=== PATIENT | female | born 1940 | race Caucasian/White ===

== ENCOUNTER 2016-09-06 08:31 | Inpatient (IN) | payer MEDICARE ==
[~2016-09-06] VITALS: Ht 160 cm; Wt 81.7 kg
[~2016-09-06 08:31] MED LIST: ACET325T38 PO; ASCO-277 PO; ASCO500C14 PO; ASP325T PO; ASPI-266 PO; ASPI-9 PO; ATOR10TA66 PO; BETA5DRO3 OU; Breo Ellipta INH; C250T PO; CALC-656 PO; CALC-758 PO; CALC600T25 PO; CETI10CA9 PO; CYCL1DRO OU; DIPH50VI4 PO; ENAL10TA PO; EPIN0.3P3 IM; FISH OIL 1,2001 EAC1 PO; FLT05NA16 NS; HYDR-756 PO; METH750T3 PO; MONT10TA21 PO; MTP50T PO; MULT-963 PO; POLY1DRO2 OU; PRD20T PO; PRED20TA PO; RT-ALBUINH IH; RT-COMBINH IH; TIOT18CA2 IH; TML25OP25 OU
[2016-09-06] MEDS ORDERED: NS IV 1000 ML 1,000 ML IV ONE (08:39)
[2016-09-06] MEDS ORDERED: RT-ALBUTEROL/IPRATROPIUM 3 ML (DUONEB) VIAL ONE (08:46)
[2016-09-06] MEDS ORDERED: RT-ALBUTEROL SULF 2.5 MG/3 ML PRE-MIX VIAL ONE ×2 (08:54→16:13)
[2016-09-06] MEDS ORDERED: ACETAMINOPHEN 500 MG TAB (TYLENOL) PO STA (08:56)
[2016-09-06] MEDS ORDERED: RT-ALBUTEROL SULF 2.5 MG/3 ML PRE-MIX VIAL INH STA ×2 (08:56→09:29)
--- NOTE | 2016-09-06 08:56 | ED General ---
General Chief Complaint: Respiratory Problems Stated Complaint: SOA Source of Information: Patient Exam Limitations: No Limitations History of Present Illness Time Seen by Provider: 08:32 Initial Comments Here with report of shortness of air that has been going on for the last week and feeling feverish today. She is currently on steroids. She states this feels like when she had pneumonia the last time a few years ago and required 10 days of hospitalization. She notes that she's had to increase her normal oxygen to keep her sats up. She states that she felt like she was confused and overall not feeling well. Denies nausea or vomiting. Timing/Duration: 1 Week, Getting Worse Severity: Moderate Associated Systoms: No Chest Pain, Cough, Fever/Chills, No Headaches, No Nausea /Vomiting, Shortness of Air, Weakness Allergies and Home Medications Allergies Coded Allergies: No Known Drug Allergies (Unverified , 05/20/13) Home Medications Albuterol Sulfate 1 Puff Puff, 2 PUFF IH QID PRN for SHORTNESS OF BREATH, ( Reported) 15 MINUTES PRIOR TO EXERCISE Ascorbic Acid 500 Mg Tablet, 500 MG PO BID, (Reported) Aspirin 81 Mg Tablet.dr, 81 MG PO DAILY, (Reported) Atorvastatin Calcium 10 Mg Tablet, 10 MG PO HS, (Reported) Betaxolol Hcl 5 Ml Drops, 1 DROP OU BID, (Reported) Calcium Carbonate/Vitamin D3 1 Each Tablet, 1 TAB PO BID, (Reported) Cetirizine HCl 10 Mg Capsule, 10 MG PO DAILY, (Reported) Cyclobenzaprine HCl 10 Mg Tablet, 5 MG PO Q8H PRN for MUSCLE SPASMS, (Reported) Epinephrine 0.3 Mg/0.3 Ml Pen.injctr, 0.3 MG IM PRN PRN for ALLERGIC REACTION, ( Reported) Fluticasone Propionate 16 Gm [place], 2 SPRAYS NS DAILY, (Reported) Fluticasone/Vilanterol 1 Each Blst.w.dev, 1 PUFF IH DAILY, (Reported) Metoprolol Tartrate 50 Mg Tablet, 50 MG PO BID, (Reported) Montelukast Sodium 10 Mg Tablet, 10 MG PO HS, (Reported) Multivitamin 1 Each Tablet, 1 TAB PO DAILY, (Reported) [place]-3 Fatty Acids/Fish Oil 1 Each Capsule, 1 TAB PO BID, (Reported) Polyvinyl Alcohol/Povidone 50 Ea [place], 1 DROP OU Q12H PRN for DRY EYES, ( Reported) Tiotropium [place] 4 Gm Mist.inhal, 2 PUFF INH DAILY, (Reported) Constitutional: see HPI, chills, fever, weakness EENTM: no symptoms reported Respiratory: see HPI, cough, short of breath, wheezing Cardiovascular: no symptoms reported Gastrointestinal: No diarrhea, No nausea, No vomiting Genitourinary: no symptoms reported Musculoskeletal: no symptoms reported All Other Systems Reviewed Negative Unless Noted: Yes Past Eqyeuix-Pmxsxc-Bcamrx Hx Patient Social History Alcohol Use: Denies Use Recreational Drug Use: No Smoking Status: Former Smoker Former Smoker/When Quit: Feb 10, 2011 Immunizations Up To Date Tetanus Booster (TDap): More than 5yrs PED Vaccines UTD: No Date of Pneumonia Vaccine: Jul 21, 2013 Date of Influenza Vaccine: Feb 20, 2015 Seasonal Allergies Seasonal Allergies: Yes Surgeries HX Surgeries: Yes (DENTAL, THUMB SURGERY) Surgeries: Hysterectomy Respiratory Hx Respiratory Disorders: Yes (COPD, WEARS HOME O2 @ 3L ) Respiratory Disorders: COPD Cardiovascular Hx Cardiac Disorders: Yes Neurological Hx Neurological Disorders: No Reproductive System Hx Reproductive Disorders: No Sexually Transmitted Disease: No HIV/AIDS: No Genitourinary Hx Genitourinary Disorders: No Gastrointestinal Hx Gastrointestinal Disorders: No Gastrointestinal Disorders: Polyps Musculoskeletal Hx Musculoskeletal Disorders: Yes (LUMBAR STENOSIS) Musculoskeletal Disorders: Arthritis, Chronic Back Pain Endocrine Hx Endocrine Disorders: No HEENT HX ENT Disorders: Yes (LASER SURGERY LENS REPLACMENT X2, GLASSES, DENTURES ) Loss of Vision: Bilateral Hearing Impairment: Denies Cancer Hx Cancer: No Cancer: Uterine Psychosocial Hx Psychiatric Problems: No Integumentary HX Skin/Integumentary Disorder: No Blood Transfusions Hx Blood Disorders: No Adverse Reaction to a Blood Tr: No Reviewed Nursing Assessment Reviewed/Agree w Nursing PMH: Yes Family Medical History Family Medial History: Cancer 09 SISTER, Onset:25's - 30 (UTERINE) Family history: Hypertension 03 FATHER 03 MOTHER 09 SISTER Myocardial infarction 03 FATHER, Onset:60 years & older 03 MOTHER, Onset:60 years & older Stroke 03 MOTHER (MANY STROKES FOR AGE 30-60) Physical Exam-Suspected Sepsis Physical Exam Vital Signs Vital Sign - Last 12Hours 09/06/16 09/06/16 08:32 08:54 Temp 103.1 Pulse 116 Resp 22 B/P (MAP) 197/100 Pulse Ox 89 O2 Delivery Nasal Cannula O2 Flow Rate 6.00 Capillary Refill : General Appearance: WD/WN, Mild Distress (respiratory) HEENT: PERRL/EOMI, Pharynx Normal Neck: Non Tender, Supple Respiratory: Crackles (bilateral bases), Decreased Breath Sounds, Respiratory Distress Cardiovascular: No Edema, No Murmur, Tachycardia Gastrointestinal: Non Tender, Soft Back: Normal Inspection, No CVA Tenderness, No Vertebral Tenderness Neurologic/Psychiatric: Alert, Oriented x3, No Motor/Sensory Deficits Skin: normal color, warm/dry Focused Exam Lactic Acid Level Laboratory Tests Test 09/06/16 08:45 Lactic Acid Level 1.56 MMOL/L (0.50-2.00) Progress/Results/Core Measures Suspected Sepsis SIRS Temperature: Pulse: Respiratory Rate: Laboratory Tests 09/06/16 08:45: White Blood Count 18.1H Blood Pressure / Mean: Laboratory Tests 09/06/16 08:45: Creatinine 1.12, INR Comment 1.1, Platelet Count 239, Total Bilirubin 0.7 Results/Orders Lab Results Laboratory Tests Test 09/06/16 08:45 Range/Units White Blood Count 18.1 H 4.3-11.0 10^3/uL Red Blood Count 4.62 4.35-5.85 10^6/uL Hemoglobin 14.0 11.5-16.0 G/DL Hematocrit 43 35-52 % Mean Corpuscular Volume 93 80-99 FL Mean Corpuscular Hemoglobin 30 25-34 PG Mean Corpuscular Hemoglobin Concent 33 32-36 G/DL Red Cell Distribution Width 14.7 H 10.0-14.5 % Platelet Count 239 130-400 10^3/uL Mean Platelet Volume 10.3 7.4-10.4 FL Neutrophils (%) (Auto) 80 H 42-75 % Lymphocytes (%) (Auto) 10 L 12-44 % Monocytes (%) (Auto) 10 0-12 % Eosinophils (%) (Auto) 0 0-10 % Basophils (%) (Auto) 0 0-10 % Neutrophils # (Auto) 14.5 H 1.8-7.8 X 10^3 Lymphocytes # (Auto) 1.8 1.0-4.0 X 10^3 Monocytes # (Auto) 1.8 H 0.0-1.0 X 10^3 Eosinophils # (Auto) 0.0 0.0-0.3 10^3/uL Basophils # (Auto) 0.0 0.0-0.1 10^3/uL Neutrophils % (Manual) 83 % Lymphocytes % (Manual) 11 % Monocytes % (Manual) 5 % Eosinophils % (Manual) 0 % Basophils % (Manual) 0 % Band Neutrophils 1 % Blood Morphology Comment NORMAL Prothrombin Time 14.0 12.2-14.7 SEC INR Comment 1.1 0.8-1.4 Activated Partial Thromboplast Time 31 24-35 SEC Sodium Level 139 135-145 MMOL/L Potassium Level 4.3 3.6-5.0 MMOL/L Chloride Level 100 98-107 MMOL/L Carbon Dioxide Level 28 21-32 MMOL/L Anion Gap 11 5-14 MMOL/L Blood Urea Nitrogen 14 7-18 MG/DL Creatinine 1.12 0.60-1.30 MG/DL Estimat Glomerular Filtration Rate 48 BUN/Creatinine Ratio 13 Glucose Level 129 H 70-105 MG/DL Lactic Acid Level 1.56 0.50-2.00 MMOL/L Calcium Level 9.4 8.5-10.1 MG/DL Total Bilirubin 0.7 0.1-1.0 MG/DL Aspartate Amino Transf (AST/SGOT) 23 5-34 U/L Alanine Aminotransferase (ALT/SGPT) 25 0-55 U/L Alkaline Phosphatase 96 40-136 U/L Total Protein 7.3 6.4-8.2 G/DL Albumin 3.9 3.2-4.5 G/DL Micro Results Microbiology 09/06/16 Influenza Types A,B Antigen (AIDAN) - Final, Complete My Orders Orders - VANDA ZHENG MD Cbc With Automated Diff (09/06/16 08:39) Comprehensive Metabolic Panel (09/06/16 08:39) Lactic Acid Analyzer (09/06/16 08:39) Blood Culture (09/06/16 08:39) Sputum Culture (09/06/16 08:39) Ua Culture If Indicated (09/06/16 08:39) Protime With Inr (09/06/16 08:39) Partial Thromboplastin Time (09/06/16 08:39) Chest 1 View, Ap/Pa Only (09/06/16 08:39) O2 (09/06/16 08:39) Saline Lock/Iv-Start (09/06/16 08:39) Saline Lock/Iv-Start (09/06/16 08:39) Vital Signs Adult Sepsis Patie Q1HR (09/06/16 08:39) Remove Rings In Anticipation O (09/06/16 08:39) Influenza A And B Antigens (09/06/16 08:39) Ns Iv 1000 Ml (Sodium Chloride 0.9%) (09/06/16 08:39) Albuterol/Ipra Inhalation Soln (Duoneb I (09/06/16 09:00) Svn Sm Volume Nebulizer Rt-Rfs (09/06/16 08:48) Albuterol/Ipra Inhalation Soln (Duoneb I (09/06/16 08:46) Albuterol Pre-Mix Nebs (Rt) (Proventil P (09/06/16 08:56) Svn Sm Volume Nebulizer Rt-Rfs (09/06/16 08:56) Acetaminophen Tablet (Tylenol Tablet) (09/06/16 08:56) Albuterol Pre-Mix Nebs (Rt) (Proventil P (09/06/16 08:54) Manual Differential (09/06/16 08:45) Albuterol Pre-Mix Nebs (Rt) (Proventil P (09/06/16 09:29) Svn Sm Volume Nebulizer Rt-Rfs (09/06/16 09:29) Methylprednisolone Sod Succ (Solu-Medrol (09/06/16 10:58) Piperacillin Sodium/Tazobactam (Zosyn Vi (09/06/16 11:00) Medications Given in ED Current Medications Medications Dose Ordered Sig/Travis Route Start Time Stop Time Status Last Admin Dose Admin Albuterol/ Ipratropium 3 ml ONCE ONCE INH 09/06/16 09:00 09/06/16 09:01 DC 09/06/16 09:00 3 ML Sodium Chloride 1,000 ml @ 0 mls/hr Q0M ONCE IV 09/06/16 08:39 09/06/16 08:42 DC 09/06/16 09:15 1,000 MLS/HR Vital Signs/I&O Vital Sign - Last 12Hours 09/06/16 09/06/16 09/06/16 09/06/16 08:32 08:54 09:01 10:03 Temp 103.1 101.3 Pulse 116 Resp 22 B/P (MAP) 197/100 Pulse Ox 89 91 O2 Delivery Nasal Cannula O2 Flow Rate 6.00 4.00 4.00 09/06/16 10:05 O2 Flow Rate 5.00 Capillary Refill : Progress Note : Progress Note Seen and evaluated. IV, labs, chest x-ray, blood cultures and lactic acid ordered. RT therapy with DuoNeb ordered. O2 applied and then increased to 4 L to keep O2 saturations greater than 90 percent. Monitor patient. Tylenol 1 g by mouth for fever of 103F. Repeat albuterol neb which did help for some time. Patient then had return of symptoms. She states she never achieved baseline after 2 treatments. Albuterol neb 2 ordered which did improve her symptoms but she is still requiring increased O2 to keep her sats above 90 percent. 1056: I did discuss the case with the hospitalist, Dr. Sheehan. Due to patient's persistence of symptoms and requirement for high flow O2 there is concerns of COPD exacerbation as well as probable pneumonia that is not showing currently. White count is 18,000 and she does have temperature 103. We will initiate Zosyn 4.5 g IV. Solu-Medrol 125 mg IV initiated as well. UA collected prior to Zosyn administration. Patient now admits that she may have had some urinary tract symptoms earlier this week. Studies to follow. Admit, inpatient status. Dr. Sheehan accepts patient for admission. Patient agrees to admission. Diagnostic Imaging Diagonstic Imaging: Xray Plain Films/CT/US/NM/MRI: chest Comments VIA [facility]. [place], [place] NAME: RAOUL BAIG [facility] REC#: [id number] PT STATUS: REG ER : 1940 PHYSICIAN: VANDA ZHENG MD ADMIT DATE: 09/06/16/ER Draft Date of Exam:09/06/16 CHEST 1 VIEW, AP/PA ONLY INDICATION: Shortness of air, fever, difficulty breathing over the last 2 nights COMPARISON STUDY: Chest radiograph from 10-05-14. FINDINGS: Some mild fibrotic changes are present in the lung bases. The heart size is upper limits. The vascularity is normal. There are no effusions. The known mass in the right lung adjacent to the spine is not visible on the radiograph. IMPRESSION: There are some fibrotic changes in the lung bases. Dictated on workstation # [id number] Dict: 09/06/16923 Trans: 09/06/16928 [facility] [id number] Interpreted by: BENITEZ HENSLEY MD Electronically signed by: Departure Communication Time/Spoke to Admitting Phy: 10:56 Impression Impression: Primary Impression: COPD with acute exacerbation Additional Impression: Pneumonia Qualified Codes: J18.9 - Pneumonia, unspecified organism Disposition: ADMITTED INPATIENT Condition: Stable Decision to Admit Reason: Admit from ER (General) Decision to Admit/Date: Sep 06, 2016 Time/Decision to Admit Time: 10:56 Departure-Patient Inst. Referrals: VERITO PEDERSEN MD (PCP/Family) Primary Care Physician VANDA ZHENG MD Sep 06, 2016 08:56
[2016-09-06 08:57] LABS: BASOPHILS % (AUTO) 0 % (0-10); EOSINOPHILS % (AUTO) 0 % (0-10); LYMPHOCYTES # (AUTO) 1.8 X 10^3 (1.0-4.0); LYMPHOCYTES % (AUTO) 10 % (12-44); MEAN CORPUSCULAR HEMOGLOBIN 30 PG (25-34); MEAN CORPUSCULAR HGB CONC 33 G/DL (32-36); MEAN CORPUSCULAR VOLUME 93 FL (80-99); MEAN PLATELET VOLUME 10.3 FL (7.4-10.4); MONOCYTES # (AUTO) 1.8 X 10^3 (0.0-1.0); MONOCYTES % (AUTO) 10 % (0-12); NEUTROPHILS # (AUTO) 14.5 X 10^3 (1.8-7.8); NEUTROPHILS % (AUTO) 80 % (42-75); PLATELET COUNT 239 10^3/uL (130-400); RED BLOOD COUNT 4.62 10^6/uL (4.35-5.85); RED CELL DISTRIBUTION WIDTH 14.7 % (10.0-14.5); WHITE BLOOD COUNT 18.1 10^3/uL (4.3-11.0)
[2016-09-06] MEDS ORDERED: RT-ALBUTEROL/IPRATROPIUM 3 ML (DUONEB) VIAL INH ONE (09:00)
[2016-09-06 09:13] LABS: INR 1.1 (0.8-1.4)
[2016-09-06 09:18] LABS: BAND NEUTROPHILS 1 %; BASOPHILS % (MANUAL) 0 %; EOSINOPHILS % (MANUAL) 0 %; LYMPHOCYTES % (MANUAL) 11 %; NEUTROPHILS % (MANUAL) 83 %
[2016-09-06 09:24] LABS: ALBUMIN 3.9 G/DL (3.2-4.5); BILIRUBIN,TOTAL 0.7 MG/DL (0.1-1.0); CALCIUM 9.4 MG/DL (8.5-10.1); CREATININE SERUM 1.12 MG/DL (0.60-1.30); POTASSIUM 4.3 MMOL/L (3.6-5.0); TOTAL PROTEIN 7.3 G/DL (6.4-8.2)
--- NOTE | 2016-09-06 09:30 | Diagnostic Imaging Report ---
INDICATION: Shortness of air, fever, difficulty breathing over the last 2 nights COMPARISON STUDY: Chest radiograph from 10-05-14. FINDINGS: Some mild fibrotic changes are present in the lung bases. The heart size is upper limits. The vascularity is normal. There are no effusions. The known mass in the right lung adjacent to the spine is not visible on the radiograph. IMPRESSION: There are some fibrotic changes in the lung bases. Dictated by: Dictated on workstation # [id number]
[2016-09-06] MEDS ORDERED: TIOT4MIS2 INH (09:54)
[2016-09-06] MEDS ORDERED: CYCL10TA9 PO (10:03)
[2016-09-06] MEDS ORDERED: FLUT1BLS IH (10:03)
[2016-09-06] MEDS ORDERED: ASCO500T7 PO (10:03)
[2016-09-06] MEDS ORDERED: methylPREDNISolone 125 MG (Solu-MEDROL) VIAL IV STA (10:58)
[2016-09-06] MEDS ORDERED: PIPERACILLIN/TAZO 4.5 GM VIAL (ZOSYN) IV ONE (11:00)
[2016-09-06] MEDS ORDERED: SODIUM CHLORIDE (ADD-VANTAGE) 0 ML IV ONE (11:02)
[2016-09-06] MEDS ORDERED: NS (IVPB) 100 ML ONE (11:04)
[2016-09-06 11:29] LABS: BILIRUBIN,URINE NEGATIVE (NEGATIVE); KETONES,URINE NEGATIVE (NEGATIVE); LEUKOCYTE ESTERASE ,URINE 2+ (NEGATIVE); NITRITE,URINE NEGATIVE (NEGATIVE); PH,URINE 7 (5-9); PROTEIN,URINE 2+ (NEGATIVE); UROBILINOGEN,URINE NORMAL (NORMAL)
[2016-09-06 12:00] VITALS: BP 123/70
[2016-09-06] MEDS ORDERED: CYCLOBENZAPRINE 10 MG (FLEXERIL) TAB PO PRN (12:00)
--- NOTE | 2016-09-06 12:04 | History & Physical-Hospitalist ---
HPI History of Present Illness: HPI/Chief Complaint CC: Fever with increased dyspnea HPI: This is a 76-year-old white female with known history of severe COPD oxygen dependent 03/12 in addition to pneumonia in the past required 10 days of hospitalization under Dr. landry nayak that presents to the emergency room after feeling fine yesterday experienced a 102 fever at home up to 103 when assessed in the ER found to have a negative chest x-ray but high suspicion for pneumonia so she was placed on IV antibiotics empirically for pneumonia protocol in addition to IV steroids nebulas treatments and oxygen supplementation. She reports that she is feeling much better and overall surprised how quickly the fever started and made her feel so ill. I reviewed her lab work showing leukocytosis of 18,000 but she is on prednisone taper given to her by Dr. Mcdonald's office when she was seen last week. At this current time I have reconciled all of her home medications of which she is requesting and will be aggressively treated to hopefully be able to discharge this weekend since your he has home oxygen at home. Source: patient Exam Limitations: no limitations Date Seen 09/06/16 Attending Physician Hilda Sheehan Floyd R MD Referring Physician Date of Admission Sep 06, 2016 at 11:00 Home Medications & Allergies Home Medications Reviewed patient Home Medication Reconciliation Form Allergies Allergies Coded Allergies No Known Drug Allergies (Unverified05/20/13) Past Csjyrbt-Qkpqke-Essjno Hx Patient Social History Marrital Status: single Employed/Student: retired Alcohol Use: Denies Use Recreational Drug Use: No Smoking Status: Former Smoker Former smoker/When Quit: Feb 10, 2011 Recent Foreign Travel: No Contact w/other who traveled: No Recent Hopitalizations: No Recent Infectious Disease Expo: No Immunizations Up To Date Tetanus Booster (TDap): More than 5yrs Date of Pneumonia Vaccine: Jul 21, 2013 Date of Influenza Vaccine: Feb 20, 2015 Seasonal Allergies Seasonal Allergies: Yes Surgeries HX Surgeries: Yes (DENTAL, THUMB SURGERY) Surgeries: Hysterectomy Respiratory Hx Respiratory Disorders: Yes (COPD, WEARS HOME O2 @ 3L ) Respiratory Disorders: COPD Cardiovascular Hx Cardiovascular Disorders: Yes Cardiac Disorders: Hypertension Neurological Hx Neurological Disorders: No Reproductive System Hx Reproductive Disorders: No Sexually Transmitted Disease: No HIV/AIDS: No Genitourinary Hx Genitourinary Disorders: No Gastrointestinal Hx Gastrointestinal Disorders: No Gastrointestinal Disorders: Polyps Musculoskeletal Hx Musculoskeletal Disorders: Yes (LUMBAR STENOSIS) Musculoskeletal Disorders: Arthritis, Chronic Back Pain Endocrine Hx Endocrine Disorders: No HEENT HX ENT Disorders: Yes (LASER SURGERY LENS REPLACMENT X2, GLASSES, DENTURES ) Loss of Vision: Bilateral Hearing Impairment: Denies Cancer Hx Cancer: No Cancer: Uterine Psychosocial Hx Psychiatric Problems: No Integumentary HX Skin/Integumentary Disorder: No Blood Transfusions Hx Blood Disorders: No Adverse Reaction to a Blood Tr: No Reviewed Nursing Assessment Reviewed/Agree w Nursing PMH: Yes Family Medical History Family Hx: Cancer 09 SISTER, Onset:25's - 30 (UTERINE) Family history: Hypertension 03 FATHER 03 MOTHER 09 SISTER Myocardial infarction 03 FATHER, Onset:60 years & older 03 MOTHER, Onset:60 years & older Stroke 03 MOTHER (MANY STROKES FOR AGE 30-60) Review of Systems Constitutional: see HPI, chills, dizziness, fever, malaise, weakness EENTM: no symptoms reported Respiratory: cough, short of breath, wheezing Cardiovascular: no symptoms reported Gastrointestinal: no symptoms reported Genitourinary: no symptoms reported Musculoskeletal: no symptoms reported Skin: no symptoms reported Psychiatric/Neurological: No Symptoms Reported All Other Systems Reviewed Negative Unless Noted: Yes Physical Exam Physical Exam Vital Signs Vital Sign - Last 12Hours 09/06/16 09/06/16 08:32 08:54 Temp 103.1 Pulse 116 Resp 22 B/P (MAP) 197/100 Pulse Ox 89 O2 Delivery Nasal Cannula O2 Flow Rate 6.00 Capillary Refill : Less Than 3 Seconds General Appearance: WD/WN, Chronically ill, Mild Distress (due to wheezing) Eyes: Bilateral Eye Normal Inspection, Bilateral Eye PERRL HEENT: PERRL/EOMI, Normal ENT Inspection, Pharynx Normal Neck: Full Range of Motion, Normal Inspection, Non Tender, Supple, Carotid Bruit Respiratory: Chest Non Tender, No Accessory Muscle Use, No Respiratory Distress , Crackles, Decreased Breath Sounds, Wheezing Cardiovascular: Regular Rate, Rhythm, No Edema, No Gallop, No JVD, No Murmur, Normal Peripheral Pulses Gastrointestinal: Normal Bowel Sounds, No Organomegaly, No Pulsatile Mass, Non Tender, Soft Back: Normal Inspection, No CVA Tenderness, No Vertebral Tenderness Extremity: Normal Capillary Refill, Normal Inspection, Normal Range of Motion, Non Tender, No Calf Tenderness, No Pedal Edema Neurologic/Psychiatric: Alert, Oriented x3, No Motor/Sensory Deficits, Normal Mood/Affect Skin: Normal Color, Warm/Dry Lymphatic: No Adenopathy Results Results/Procedures Lab Laboratory Tests 09/06/16 08:45 Assessment/Plan Admission Diagnosis Assessment: Fever of 103 with normal chest x-ray likely early pneumonia with leukocytosis empirically treating on pneumonia protocol Hypertension Oxygen dependency 03/12 at home Glaucoma Assessment and Plan Plan: Oxygen supplementation Nebulizer treatments Reconcile all home meds Pneumonia protocol with empiric antibiotics Repeat chest x-ray in the morning along with labs HILDA SHEEHAN DO Sep 06, 2016 12:04
[2016-09-06 12:46] VITALS: BP 123/70
[2016-09-06] MEDS ORDERED: ARTIFICAL TEARS 0.4 ML UNIT DOSE (REFRESH PLUS) OU PRN (13:00)
[2016-09-06] MEDS: NS IV 1000 ML 1,000 ML IV SCH (13:16)
[2016-09-06] MEDS: ASPIRIN E.C. 81 MG (ECOTRIN) TAB PO SCH (13:16)
[2016-09-06 15:50] VITALS: BP 138/67
[2016-09-06] MEDS: ASCORBIC ACID (VIT C) 500 MG TABLET PO SCH (16:42)
[2016-09-06] MEDS: CALCIUM CARB + VIT D 600 MG (CALCARB + D) TAB PO SCH (16:42)
[2016-09-06] MEDS: OMEGA 3 (FISH OIL) 1000 MG CAP PO SCH (16:42)
[2016-09-06] MEDS: methylPREDNISolone 40 MG/ML (Solu-MEDROL) VIAL IV SCH (16:44)
[2016-09-06] MEDS ORDERED: RT-ALBUTEROL SULF 2.5 MG/3 ML PRE-MIX VIAL IH PRN (16:45)
[2016-09-06] MEDS: PIPERACILLIN/TAZOBACTAM 4.5 GM/NS 100 ML IVPB IV SCH ×2 (16:46)
[2016-09-06 19:25] VITALS: BP 145/71
[2016-09-06] MEDS: RT-ALBUTEROL SULF 2.5 MG/3 ML PRE-MIX VIAL IH SCH (19:48)
[2016-09-06] MEDS: RT-ADVAIR HFA 115/21 MCG PER PUFF IH SCH (19:48)
[2016-09-06] MEDS: MONTELUKAST 10 MG (SINGULAIR) TAB PO SCH (20:55)
[2016-09-06] MEDS: BETAXOLOL 0.5% OU SCH (20:55)
[2016-09-06] MEDS: ATORVASTATIN 10 MG (LIPITOR) TABLET PO SCH (20:55)
[2016-09-06] MEDS: meTOprolol TARTRATE 50 MG (LOPRESSOR) TAB PO SCH (20:55)
[2016-09-07] MEDS: PIPERACILLIN/TAZOBACTAM 4.5 GM/NS 100 ML IVPB IV SCH ×6 (00:01→17:12)
[2016-09-07] MEDS: methylPREDNISolone 40 MG/ML (Solu-MEDROL) VIAL IV SCH ×5 (00:01→23:39)
[2016-09-07 00:35] VITALS: BP 130/68
[2016-09-07 04:37] VITALS: BP 130/73
[2016-09-07] MEDS: OMEGA 3 (FISH OIL) 1000 MG CAP PO SCH ×2 (06:17→17:11)
[2016-09-07] MEDS: MULTIVIT W/MINERALS TAB (THERAGRAN M) PO SCH (06:17)
[2016-09-07] MEDS: ASCORBIC ACID (VIT C) 500 MG TABLET PO SCH ×2 (06:17→17:11)
[2016-09-07] MEDS: CALCIUM CARB + VIT D 600 MG (CALCARB + D) TAB PO SCH ×2 (06:17→17:11)
[2016-09-07 06:44] LABS: BASOPHILS % (AUTO) 0 % (0-10); EOSINOPHILS % (AUTO) 0 % (0-10); LYMPHOCYTES # (AUTO) 0.7 X 10^3 (1.0-4.0); LYMPHOCYTES % (AUTO) 3 % (12-44); MEAN CORPUSCULAR HEMOGLOBIN 30 PG (25-34); MEAN CORPUSCULAR HGB CONC 32 G/DL (32-36); MEAN CORPUSCULAR VOLUME 94 FL (80-99); MEAN PLATELET VOLUME 10.6 FL (7.4-10.4); MONOCYTES # (AUTO) 0.5 X 10^3 (0.0-1.0); MONOCYTES % (AUTO) 2 % (0-12); NEUTROPHILS # (AUTO) 20.6 X 10^3 (1.8-7.8); NEUTROPHILS % (AUTO) 95 % (42-75); PLATELET COUNT 241 10^3/uL (130-400); RED CELL DISTRIBUTION WIDTH 14.9 % (10.0-14.5); WHITE BLOOD COUNT 21.8 10^3/uL (4.3-11.0)
[2016-09-07 07:14] LABS: ALBUMIN 3.3 G/DL (3.2-4.5); BILIRUBIN,TOTAL 0.5 MG/DL (0.1-1.0); CALCIUM 8.9 MG/DL (8.5-10.1); CREATININE SERUM 0.92 MG/DL (0.60-1.30)
[2016-09-07] MEDS: RT-ADVAIR HFA 115/21 MCG PER PUFF IH SCH ×2 (07:21→19:46)
[2016-09-07] MEDS: RT-ALBUTEROL SULF 2.5 MG/3 ML PRE-MIX VIAL IH SCH ×3 (07:21→19:46)
[2016-09-07] MEDS: UMECLIDINIUM BROMIDE (INCRUSE ELLIPTA) 7'S IH SCH (07:21)
[2016-09-07 07:43] LABS: ANISOCYTOSIS SLIGHT; BAND NEUTROPHILS 10 %; BASOPHILS % (MANUAL) 0 %; EOSINOPHILS % (MANUAL) 0 %; LYMPHOCYTES % (MANUAL) 5 %; NEUTROPHILS % (MANUAL) 82 %
[2016-09-07 08:00] VITALS: BP 133/73
[2016-09-07] MEDS ORDERED: VANCOMYCIN 1,750 MG/NS 500 ML IVPB IV NR ×2 (08:00)
--- NOTE | 2016-09-07 09:05 | Diagnostic Imaging Report ---
EXAMINATION: PA and lateral views of the chest. INDICATION: Fever. COMPARISON: 09/06/2016. FINDINGS: There is pulmonary hyperinflation with interstitial scarring. The heart size is enlarged with mild vascular congestion. Minimal right basilar atelectasis is seen. No effusion or pneumothorax. The mediastinum and delicia appear unremarkable. IMPRESSION: Cardiomegaly with mild vascular congestion. COPD. Mild right basilar atelectasis. Dictated by: Dictated on workstation # [id number]
[2016-09-07] MEDS: ASPIRIN E.C. 81 MG (ECOTRIN) TAB PO SCH (09:12)
[2016-09-07] MEDS: LORATADINE (CLARITIN) 10 MG TAB PO SCH (09:12)
[2016-09-07] MEDS: meTOprolol TARTRATE 50 MG (LOPRESSOR) TAB PO SCH ×2 (09:12→20:07)
[2016-09-07] MEDS: FLUTICASONE NASAL SPRAY (FLONASE) 16 GM BTL NS SCH ×2 (09:13→22:22)
[2016-09-07] MEDS: BETAXOLOL 0.5% OU SCH ×2 (09:13→20:07)
--- NOTE | 2016-09-07 10:57 | Progress Note-Hospitalist ---
Progress Note HPI/CC on Admission CC: Fever with increased dyspnea HPI: This is a 76-year-old white female with known history of severe COPD oxygen dependent 24/7 in addition to pneumonia in the past required 10 days of hospitalization under Dr. landry nayak that presents to the emergency room after feeling fine yesterday experienced a 102 fever at home up to 103 when assessed in the ER found to have a negative chest x-ray but high suspicion for pneumonia so she was placed on IV antibiotics empirically for pneumonia protocol in addition to IV steroids nebulas treatments and oxygen supplementation. She reports that she is feeling much better and overall surprised how quickly the fever started and made her feel so ill. I reviewed her lab work showing leukocytosis of 18,000 but she is on prednisone taper given to her by Dr. Mcdonald's office when she was seen last week. At this current time I have reconciled all of her home medications of which she is requesting and will be aggressively treated to hopefully be able to discharge this weekend since your he has home oxygen at home. Progress Notes/Assess & Plan Date Seen 09/07/16 Admission Dx/Process Assessment: Fever of 103 with normal chest x-ray likely early pneumonia with leukocytosis empirically treating on pneumonia protocol Hypertension Oxygen dependency 24/7 at home Glaucoma Diagonsis/Assessment & Plan Patient doing much better and breathing well but she does have exertional dyspnea Titrating down on oxygen as much as possible Bowel movements are loose but not terribly so Denies any pain Eating and drinking well Tolerating steroids Does not have a nebulizer machine Goes to [facility] at discharge Wants Tums No fever, vital signs stable, pleasant, improved, chronically ill Regular rate rhythm, improved wheezing and rales on lung exam No edema Laboratory Tests 09/07/16 05:26 Assessment: Fever of 103 with normal chest x-ray revealing early pneumonia LLL with leukocytosis empirically treating on pneumonia protocol with Zosyn and added Vanc due to Enterococcus on UCx and Blood Cx Leukocytosis due to acute illness along with steroids Hypertension Oxygen dependency 24/7 at home Glaucoma Hyperglycemia due to steroids Plan: Oxygen supplementation Nebulizer treatments Tums Pneumonia protocol with empiric antibiotics along with Vanc until Enterococcus sensitivity is completed Repeat labs in am OWEN REYES DO Sep 07, 2016 10:57
[2016-09-07] MEDS: CALCIUM CARBONATE 500 MG (TUMS) TAB.CHEW PO PRN ×3 (11:17→19:26)
[2016-09-07 11:45] VITALS: BP 144/75
[2016-09-07] MEDS: NS IV 1000 ML 1,000 ML IV SCH (12:10)
[2016-09-07 15:20] VITALS: BP 136/71
[2016-09-07 19:15] VITALS: BP 165/77
[2016-09-07] MEDS: ATORVASTATIN 10 MG (LIPITOR) TABLET PO SCH (20:07)
[2016-09-07] MEDS: MONTELUKAST 10 MG (SINGULAIR) TAB PO SCH (20:07)
[2016-09-08] VITALS (8 sets, daily range): BP systolic 139–178; BP diastolic 62–87
[2016-09-08] MEDS: PIPERACILLIN/TAZOBACTAM 4.5 GM/NS 100 ML IVPB IV SCH ×6 (01:28→17:33)
[2016-09-08] MEDS: methylPREDNISolone 40 MG/ML (Solu-MEDROL) VIAL IV SCH ×2 (05:03→19:55)
[2016-09-08] MEDS: CALCIUM CARB + VIT D 600 MG (CALCARB + D) TAB PO SCH ×2 (06:27→17:33)
[2016-09-08] MEDS: MULTIVIT W/MINERALS TAB (THERAGRAN M) PO SCH (06:27)
[2016-09-08] MEDS: ASCORBIC ACID (VIT C) 500 MG TABLET PO SCH ×2 (06:27→17:33)
[2016-09-08] MEDS: OMEGA 3 (FISH OIL) 1000 MG CAP PO SCH ×2 (06:27→17:33)
[2016-09-08 06:35] LABS: BASOPHILS % (AUTO) 0 % (0-10); EOSINOPHILS % (AUTO) 0 % (0-10); LYMPHOCYTES # (AUTO) 0.5 X 10^3 (1.0-4.0); LYMPHOCYTES % (AUTO) 2 % (12-44); MEAN CORPUSCULAR HEMOGLOBIN 30 PG (25-34); MEAN CORPUSCULAR HGB CONC 32 G/DL (32-36); MEAN CORPUSCULAR VOLUME 94 FL (80-99); MEAN PLATELET VOLUME 10.3 FL (7.4-10.4); MONOCYTES # (AUTO) 0.8 X 10^3 (0.0-1.0); MONOCYTES % (AUTO) 3 % (0-12); NEUTROPHILS # (AUTO) 27.6 X 10^3 (1.8-7.8); NEUTROPHILS % (AUTO) 95 % (42-75); PLATELET COUNT 253 10^3/uL (130-400); RED CELL DISTRIBUTION WIDTH 14.9 % (10.0-14.5); WHITE BLOOD COUNT 28.9 10^3/uL (4.3-11.0)
[2016-09-08 06:49] LABS: BAND NEUTROPHILS 0 %; BASOPHILS % (MANUAL) 0 %; EOSINOPHILS % (MANUAL) 0 %; LYMPHOCYTES % (MANUAL) 0 %; NEUTROPHILS % (MANUAL) 96 %
[2016-09-08 06:50] LABS: ANISOCYTOSIS SLIGHT
[2016-09-08 07:14] LABS: ALBUMIN 3.3 G/DL (3.2-4.5); BILIRUBIN,TOTAL 0.4 MG/DL (0.1-1.0); CALCIUM 8.7 MG/DL (8.5-10.1); CREATININE SERUM 1.05 MG/DL (0.60-1.30); POTASSIUM 3.6 MMOL/L (3.6-5.0); TOTAL PROTEIN 6.1 G/DL (6.4-8.2)
[2016-09-08] MEDS: RT-ALBUTEROL SULF 2.5 MG/3 ML PRE-MIX VIAL IH SCH ×3 (07:45→18:32)
[2016-09-08] MEDS: RT-ADVAIR HFA 115/21 MCG PER PUFF IH SCH ×2 (07:45→18:33)
[2016-09-08] MEDS: UMECLIDINIUM BROMIDE (INCRUSE ELLIPTA) 7'S IH SCH (07:46)
[2016-09-08] MEDS ORDERED: VANCOMYCIN 1250 MG/NS 250 ML IVPB IV SCH ×2 (08:00)
[2016-09-08] MEDS: BETAXOLOL 0.5% OU SCH ×2 (08:07→20:06)
[2016-09-08] MEDS: LORATADINE (CLARITIN) 10 MG TAB PO SCH (08:42)
[2016-09-08] MEDS: ASPIRIN E.C. 81 MG (ECOTRIN) TAB PO SCH (08:42)
[2016-09-08] MEDS: CALCIUM CARBONATE 500 MG (TUMS) TAB.CHEW PO PRN ×2 (08:42→13:40)
[2016-09-08] MEDS: meTOprolol TARTRATE 50 MG (LOPRESSOR) TAB PO SCH ×2 (08:42→19:15)
--- NOTE | 2016-09-08 09:13 | ECHOCARDIOGRAPHY REPORT ---
DATE OF SERVICE: 09/07/2016 PROCEDURE: Two-dimensional echocardiogram. REFERRING PHYSICIANS: Dr. Medina and Dr. Sheehan. INDICATION: Shortness of breath. MEASUREMENT: LVID end diastolic 3.5, IVS thickness 1.3, LVPW thickness 1.2, left atrial diameter 3.4, ejection fraction 60%. FINDINGS: 1. Technically difficult study. 2. The left ventricle is normal in size, endocardium was not well visualized in all segments, left ventricular hypertrophy was noted, ejection fraction 60%. 3. The left atrium is normal in size. No clot or thrombus was seen within the left atrium. 4. The right atrium and right ventricle are normal in size. No clot or thrombus was seen within the right side. 5. The mitral valve is normal in morphology with mild mitral regurgitation noted by color Doppler flow, no mitral valve prolapse, no mitral valve stenosis. 6. Aortic valve is calcified. There is no significant aortic valve stenosis or regurgitation seen. 7. Tricuspid valve is normal in morphology with mild tricuspid regurgitation noted by color Doppler flow. Doppler across the tricuspid valve estimated a pulmonary artery pressure of 16 plus right atrial pressure. 8. The pulmonic valve is functioning normally. 9. No pericardial effusion. CONCLUSION: 1. Technically difficult study. 2. Normal left ventricular size with mild left ventricular hypertrophy. Endocardium was not well visualized in all segments. Systolic function appeared to be normal, estimated ejection fraction 60%. 3. Mild mitral and tricuspid regurgitation. 4. Estimated pulmonary artery pressure of 25 mmHg. Job ID: [id number] DocumentID: [id number] Dictated Date: 09/07/2016 17:00:54 Gang Boss Date: 09/08/2016 04:54:24 Dictated By: JEAN SELF MD
[2016-09-08] MEDS ORDERED: FUROSEMIDE 40 MG/4 ML INJ (LASIX) IVP ONE (09:45)
--- NOTE | 2016-09-08 09:52 | Progress Note-Hospitalist ---
Progress Note HPI/CC on Admission CC: Fever with increased dyspnea HPI: This is a 76-year-old white female with known history of severe COPD oxygen dependent 24/7 in addition to pneumonia in the past required 10 days of hospitalization under Dr[address] alatorre service that presents to the emergency room after feeling fine yesterday experienced a 102 fever at home up to 103 when assessed in the ER found to have a negative chest x-ray but high suspicion for pneumonia so she was placed on IV antibiotics empirically for pneumonia protocol in addition to IV steroids nebulas treatments and oxygen supplementation. She reports that she is feeling much better and overall surprised how quickly the fever started and made her feel so ill. I reviewed her lab work showing leukocytosis of 18,000 but she is on prednisone taper given to her by Dr. Mcdonald's office when she was seen last week. At this current time I have reconciled all of her home medications of which she is requesting and will be aggressively treated to hopefully be able to discharge this weekend since your he has home oxygen at home. Progress Notes/Assess & Plan Date Seen 09/08/16 Admission Dx/Process Assessment: Fever of 103 with normal chest x-ray likely early pneumonia with leukocytosis empirically treating on pneumonia protocol Hypertension Oxygen dependency 24/7 at home Glaucoma Diagonsis/Assessment & Plan Patient having a bit of a set back today just feeling under the weather. Titrating down on oxygen as much as possible Bowel movements are nl Denies any pain Eating and drinking well Will decrease steroids since that could be causing some of her symptoms Does not have a nebulizer machine so will contemplate that at DC Goes to [facility] pharmacy at discharge [place] tachycardic so consulted her [employer] Official Dr Pryor whom she just saw last week Cultures reviewed and it does not appear to be Enterococcus so DC Vanc and Strep Viridans + so will pursue bacteremia due to dental source? No fever, vital signs stable, pleasant, no changes, chronically ill Regular rate rhythm, improved wheezing and rales on lung exam now CTAB No edema Laboratory Tests 09/08/16 06:10 Assessment: Fever of 103 with normal chest x-ray revealing early pneumonia RLL with leukocytosis empirically treating on pneumonia protocol with Zosyn and DC Vanc due to Strep Viridans and not Enterococcus Blood Cx Leukocytosis due to acute illness along with steroids worsened today Hypertension Oxygen dependency 24/7 at home Glaucoma Hyperglycemia due to steroids Tachycardia consulting Cardiology Plan: Oxygen supplementation Nebulizer treatments Pneumonia protocol with empiric antibiotics of Zosyn Repeat labs in am along with CXR DC Vanc Decrease steroids since that could be causing her symptoms currently Consult Cardiology to evaluate Strep Viridans on BCx making me suspect need r/o for endocarditis OWEN REYES DO Sep 08, 2016 09:52
[2016-09-08] MEDS: FLUTICASONE NASAL SPRAY (FLONASE) 16 GM BTL NS SCH (10:18)
--- NOTE | 2016-09-08 11:09 | Consultation-Cardiology ---
HPI-Cardiology Cardiology Consultation Date of Consultation 09/08/16 Date of Admission Indication: Sepsis HPI 76-year-old lady with history of hypertension, hyperlipidemia, was seen in my office last week and she was feeling well. Reported that suddenly started having fever and weakness for shortness of breath, occur very quickly, patient came into the hospital and diagnosed with pneumonia started on antibiotic. Blood culture grew strep Viridant, she is currently short of breath, using oxygen, denied any chest pain. Denied any palpitation, Home Medications & Allergies Allergies: Coded Allergies: No Known Drug Allergies (Unverified , 09/06/16) Home Medication List Reviewed: Yes [id number] Hx Patient Social History Marital Status: single Employed/Student: retired Alcohol Use: Denies Use Recreational Drug Use: No Smoking Status: Former Smoker Former smoker/When Quit: Feb 10, 2011 Type Used: Cigarettes Recent Foreign Travel: No Recent Infectious Disease Expo: No Recent Hopitalizations: No Physical Abuse Screen: No Sexual Abuse: No Immunizations Up To Date Tetanus Booster (TDap): More than 5yrs Date of Pneumonia Vaccine: Jul 21, 2013 Date of Influenza Vaccine: Feb 20, 2015 Past Medical History past medical history as discussed below Family Medical History Family History: 03 FATHER Family history: Hypertension Myocardial infarction, Onset:60 years & older 03 MOTHER Family history: Hypertension Myocardial infarction, Onset:60 years & older Stroke ([place]ES FOR AGE 30-60) 09 SISTER Cancer, Onset:25's - 30 (UTERINE) Family history: Hypertension Constitutional: see HPI, fever, malaise, weakness EENTM: no symptoms reported, see HPI Respiratory: see HPI, cough, dyspnea on exertion, phlegm, short of breath Cardiovascular: see HPI, No chest pain, No edema, No Hx of Intervention, No palpitations, No syncope, No vascular heart diseas, No other Gastrointestinal: no symptoms reported, see HPI Genitourinary: no symptoms reported, see HPI Musculoskeletal: no symptoms reported, see HPI Skin: no symptoms reported, see HPI Psychiatric/Neurological: No Symptoms Reported, See HPI Reviewed Test Results Reviewed Test Results Lab Laboratory Tests Test 09/07/16 11:14 09/08/16 06:10 09/08/16 09:12 Range/Units B-Type Natriuretic Peptide 154.7 H <100.0 PG/ML White Blood Count 28.9 H 4.3-11.0 10^3/uL Red Blood Count 3.90 L 4.35-5.85 10^6/uL Hemoglobin 11.7 11.5-16.0 G/DL Hematocrit 37 35-52 % Mean Corpuscular Volume 94 80-99 FL Mean Corpuscular Hemoglobin 30 25-34 PG Mean Corpuscular Hemoglobin Concent 32 32-36 G/DL Red Cell Distribution Width 14.9 H 10.0-14.5 % Platelet Count 253 130-400 10^3/uL Mean Platelet Volume 10.3 7.4-10.4 FL Neutrophils (%) (Auto) 95 H 42-75 % Lymphocytes (%) (Auto) 2 L 12-44 % Monocytes (%) (Auto) 3 0-12 % Eosinophils (%) (Auto) 0 0-10 % Basophils (%) (Auto) 0 0-10 % Neutrophils # (Auto) 27.6 H 1.8-7.8 X 10^3 Lymphocytes # (Auto) 0.5 L 1.0-4.0 X 10^3 Monocytes # (Auto) 0.8 0.0-1.0 X 10^3 Eosinophils # (Auto) 0.0 0.0-0.3 10^3/uL Basophils # (Auto) 0.0 0.0-0.1 10^3/uL Neutrophils % (Manual) 96 % Lymphocytes % (Manual) 0 % Monocytes % (Manual) 4 % Eosinophils % (Manual) 0 % Basophils % (Manual) 0 % Band Neutrophils 0 % Smudge Cells SLIGHT Toxic Granulation 1+ Clumped Platelets SLIGHT Anisocytosis SLIGHT Elliptocytes SLIGHT Sodium Level 143 135-145 MMOL/L Potassium Level 3.6 3.6-5.0 MMOL/L Chloride Level 107 98-107 MMOL/L Carbon Dioxide Level 25 21-32 MMOL/L Anion Gap 11 5-14 MMOL/L Blood Urea Nitrogen 25 H 7-18 MG/DL Creatinine 1.05 0.60-1.30 MG/DL Estimat Glomerular Filtration Rate 51 BUN/Creatinine Ratio 24 Glucose Level 160 H 70-105 MG/DL Calcium Level 8.7 8.5-10.1 MG/DL Total Bilirubin 0.4 0.1-1.0 MG/DL Aspartate Amino Transf (AST/SGOT) 26 5-34 U/L Alanine Aminotransferase (ALT/SGPT) 34 0-55 U/L Alkaline Phosphatase 81 40-136 U/L Total Protein 6.1 L 6.4-8.2 G/DL Albumin 3.3 3.2-4.5 G/DL Glucometer 230 H 70-110 MG/DL Physical Exam Vital Signs Vital Sign - Last 12Hours 09/06/16 09/06/16 08:32 08:54 Temp 103.1 Pulse 116 Resp 22 B/P (MAP) 197/100 Pulse Ox 89 O2 Delivery Nasal Cannula O2 Flow Rate 6.00 Capillary Refill : Less Than 3 SecondsLess Than 3 Seconds General Appearance: WD/WN, Moderate Distress Eyes: Bilateral Eye EOMI, Bilateral Eye Normal Inspection, Bilateral Eye PERRL HEENT: PERRL/EOMI, TMs Normal, Normal ENT Inspection, Pharynx Normal Neck: Full Range of Motion, Normal Inspection, Non Tender, Supple, Carotid Bruit Respiratory: Chest Non Tender, Accessory Muscle Use, Crackles, Decreased Breath Sounds, Expiration, Rhonci Cardiovascular: Regular Rate, Rhythm, No Edema, No Gallop, No JVD, No Murmur, Normal Peripheral Pulses Gastrointestinal: Normal Bowel Sounds, No Organomegaly, No Pulsatile Mass, Non Tender, Soft Back: Normal Inspection, No CVA Tenderness, No Vertebral Tenderness Extremity: Normal Capillary Refill, Normal Inspection, Normal Range of Motion, Non Tender, No Calf Tenderness, No Pedal Edema Neurologic/Psychiatric: Alert, Oriented x3, No Motor/Sensory Deficits, Normal Mood/Affect Skin: Normal Color, Warm/Dry Lymphatic: No Adenopathy A/P-Cardiology Admission Diagnosis Acute respiratory insufficiency Pneumonia Sepsis Hypertension Assessment/Plan Sepsis, pneumonia, strep viridans and the blood, patient is receiving antibiotics, will need to have a KALEB done to rule out endocarditis. Continue on antibiotic at this point. Shortness of breath, acute respiratory insufficiency, patient is on oxygen, I am planning to do KALEB once her breathing is better to avoid the risk of worsening her respiratory insufficiency History of severe COPD, using home oxygen, followed by Dr. Mcdonald. Hypertension, continue to monitor blood pressure, restart home medication Hyperlipidemia, continue to monitor lipids History of mild bilateral carotid stenosis, last carotid ultrasound was done earlier this month. Continue to monitor History of tobaccoism Clinical Quality Measures DVT/VTE Risk/Contraindication: Risk Factor Score Per Nursin RFS Level Per Nursing on Admit: 4+=Very High JEAN SELF MD Sep 08, 2016 11:08
[2016-09-08] MEDS ORDERED: SALIVA STIMULANT MOUTH SPRAY (BIOTENE) 1.5 OZ MM PRN (11:15)
[2016-09-08] MEDS: ACETAMINOPHEN 500 MG TAB (TYLENOL) PO PRN (14:33)
[2016-09-08] MEDS: MONTELUKAST 10 MG (SINGULAIR) TAB PO SCH (20:05)
[2016-09-08] MEDS: ATORVASTATIN 10 MG (LIPITOR) TABLET PO SCH (20:05)
[2016-09-08 20:15] LABS: ABG BASE EXCESS 5.3 MMOL/L (-2.5-2.5); ABG HCO3 29 MMOL/L (23-27); ABG OXYGEN SATURATION 94 % (94-100); ABG PCO2 42 MMHG (35-45); ABG PH 7.46 (7.37-7.43); ABG PO2 74 MMHG (79-93); ABG TCO2 29.9 MMOL/L (21.0-31.0)
[2016-09-08] MEDS ORDERED: ACETAMINOPHEN 500 MG TAB (TYLENOL) PO ONE (20:15)
[2016-09-08 20:16] LABS: ALLENS TEST YES-POS
[2016-09-08 20:39] LABS: MEAN PLATELET VOLUME 10.2 FL (7.4-10.4); RED BLOOD COUNT 4.3 10^6/uL (4.35-5.85); RED CELL DISTRIBUTION WIDTH 15.2 % (10.0-14.5); WHITE BLOOD COUNT 27.6 10^3/uL (4.3-11.0)
[2016-09-08 20:56] LABS: ALBUMIN 3.7 G/DL (3.2-4.5); BILIRUBIN,TOTAL 0.6 MG/DL (0.1-1.0); CALCIUM 9.1 MG/DL (8.5-10.1); CREATININE SERUM 1.1 MG/DL (0.60-1.30); POTASSIUM 3.4 MMOL/L (3.6-5.0)
[2016-09-09] VITALS (7 sets, daily range): BP systolic 113–160; BP diastolic 65–83
[2016-09-09] MEDS: PIPERACILLIN/TAZOBACTAM 4.5 GM/NS 100 ML IVPB IV SCH ×6 (00:52→17:01)
[2016-09-09 05:06] LABS: BASOPHILS % (AUTO) 0 % (0-10); EOSINOPHILS % (AUTO) 0 % (0-10); LYMPHOCYTES # (AUTO) 0.5 X 10^3 (1.0-4.0); LYMPHOCYTES % (AUTO) 2 % (12-44); MEAN CORPUSCULAR HEMOGLOBIN 30 PG (25-34); MEAN CORPUSCULAR HGB CONC 32 G/DL (32-36); MEAN CORPUSCULAR VOLUME 93 FL (80-99); MEAN PLATELET VOLUME 10.2 FL (7.4-10.4); MONOCYTES # (AUTO) 0.7 X 10^3 (0.0-1.0); MONOCYTES % (AUTO) 3 % (0-12); NEUTROPHILS # (AUTO) 24.9 X 10^3 (1.8-7.8); NEUTROPHILS % (AUTO) 95 % (42-75); PLATELET COUNT 245 10^3/uL (130-400); RED CELL DISTRIBUTION WIDTH 15.1 % (10.0-14.5); WHITE BLOOD COUNT 26.2 10^3/uL (4.3-11.0)
[2016-09-09] MEDS: CALCIUM CARB + VIT D 600 MG (CALCARB + D) TAB PO SCH ×2 (06:13→17:01)
[2016-09-09] MEDS: MULTIVIT W/MINERALS TAB (THERAGRAN M) PO SCH (06:13)
[2016-09-09] MEDS: OMEGA 3 (FISH OIL) 1000 MG CAP PO SCH ×2 (06:13→17:01)
[2016-09-09] MEDS: ASCORBIC ACID (VIT C) 500 MG TABLET PO SCH ×2 (06:13→17:01)
[2016-09-09 06:20] LABS: ALBUMIN 3.3 G/DL (3.2-4.5); BILIRUBIN,TOTAL 0.6 MG/DL (0.1-1.0); CALCIUM 8.7 MG/DL (8.5-10.1); CREATININE SERUM 0.97 MG/DL (0.60-1.30); POTASSIUM 3.8 MMOL/L (3.6-5.0); TOTAL PROTEIN 6.4 G/DL (6.4-8.2)
[2016-09-09] MEDS: RT-ADVAIR HFA 115/21 MCG PER PUFF IH SCH ×2 (07:09→18:50)
[2016-09-09] MEDS: UMECLIDINIUM BROMIDE (INCRUSE ELLIPTA) 7'S IH SCH (07:09)
[2016-09-09] MEDS: RT-ALBUTEROL SULF 2.5 MG/3 ML PRE-MIX VIAL IH SCH ×4 (07:09→22:15)
[2016-09-09] MEDS: BETAXOLOL 0.5% OU SCH ×2 (08:13→20:16)
[2016-09-09] MEDS: FLUTICASONE NASAL SPRAY (FLONASE) 16 GM BTL NS SCH (08:13)
[2016-09-09] MEDS: methylPREDNISolone 40 MG/ML (Solu-MEDROL) VIAL IV SCH ×2 (08:14→20:16)
[2016-09-09] MEDS: LORATADINE (CLARITIN) 10 MG TAB PO SCH (08:14)
[2016-09-09] MEDS: ASPIRIN E.C. 81 MG (ECOTRIN) TAB PO SCH (08:14)
[2016-09-09] MEDS: ACETAMINOPHEN 500 MG TAB (TYLENOL) PO PRN (08:14)
[2016-09-09] MEDS: meTOprolol TARTRATE 50 MG (LOPRESSOR) TAB PO SCH ×2 (08:14→20:16)
[2016-09-09] MEDS: CATHETER FLUSH 10 ML SYR IV PRN (08:15)
[2016-09-09] MEDS: CALCIUM CARBONATE 500 MG (TUMS) TAB.CHEW PO PRN ×3 (08:51→18:30)
--- NOTE | 2016-09-09 09:20 | Cardiology Progress Note ---
Subjective Subjective/Events-last exam patient is laying down in bed, still having significant shortness of breath, having fever, had a reaction to vancomycin, maintained on Zosyn at this time. Review of Systems General: Chills, No Night Sweats, Fatigue, Malaise, No Appetite, No Other HEENT: No Head Aches, No Visual Changes, No Eye Pain, No Ear Pain, No Dysphasia , No Sinus Congestion, No Post Nasal Drip, No Sore Throat, No Other Pulmonary: Dyspnea, No Cough, No Pleuritic Chest Pain, No Other Cardiovascular: No: Chest Pain, Edema, Lt Headedness, Orthopnea, Other, Palpitations, Paroxysmal Noc. Dyspnea Objective-Cardiology Exam Last Set of Vital Signs Vital Signs 09/09/16 09/09/16 09/09/16 04:14 07:16 08:14 Temp 100.2 Pulse 87 Resp 16 B/P (MAP) 130/65 Pulse Ox 92 O2 Delivery Nasal Cannula Capillary Refill : Less Than 3 SecondsLess Than 3 Seconds I&O Intake and Output 09/09/16 00:00 Intake Total 2770 ml Output Total 2650 ml Balance 120 ml Intake Oral 2020 ml IV Total 750 ml Output Urine Total 2650 ml # Voids 4 # Bowel Movements 6 General: Alert, Oriented X3, Cooperative HEENT: Atraumatic, PERRLA Neck: Supple, No JVD, No Thyromegaly Lungs: Normal Air Movement, Other (bilateral rhonchi) Heart: Regular Rate, Normal S1, Normal S2, No Murmurs Abdomen: Normal Bowel Sounds, Soft, No Tenderness, No Hepatosplenomegaly, No Masses Extremities: No Clubbing, No Cyanosis, No Edema, Normal Pulses, No Tenderness/ Swelling Skin: No Rashes, No Breakdown, No Significant Lesion Neuro: Normal Gait, Normal Speech, Strength at 5/5 X4 Ext, Normal Tone, Sensation Intact Psych/Mental Status: Mental Status NL, Mood NL Results Lab Laboratory Tests 09/08/16 20:28 09/09/16 04:57 A/P-Cardiology Admission Diagnosis Acute respiratory insufficiency Pneumonia Sepsis Hypertension Assessment/Plan Sepsis, pneumonia, strep viridans and the blood, had a reaction to vancomycin, currently receiving Zosyn only, I will evaluate 2-D echocardiogram and planning to evaluate KALEB Shortness of breath, acute respiratory insufficiency, patient is on oxygen, I am planning to do KALEB once her breathing is better to avoid the risk of worsening her respiratory insufficiency R progression to respiratory failure History of severe COPD, using home oxygen, followed by Dr. Mcdonald. Hypertension, restart home medication continue to monitor blood pressure Hyperlipidemia, continue to monitor lipids History of mild bilateral carotid stenosis, last carotid ultrasound was done earlier this month. Continue to monitor History of tobaccoism Clinical Quality Measures DVT/VTE Risk/Contraindication: Risk Factor Score Per Nursin RFS Level Per Nursing on Admit: 4+=Very High JEAN SELF MD Sep 09, 2016 09:20
[2016-09-09] MEDS ORDERED: ALPRAZolam 0.25 MG (XANAX) TAB PO ONE (09:30)
[2016-09-09] MEDS ORDERED: ALPRAZolam 0.25 MG (XANAX) TAB PO PRN (10:00)
--- NOTE | 2016-09-09 10:05 | Progress Note-Hospitalist ---
Progress Note HPI/CC on Admission CC: Fever with increased dyspnea HPI: This is a 76-year-old white female with known history of severe COPD oxygen dependent 24/7 in addition to pneumonia in the past required 10 days of hospitalization under Dr. alatorre service that presents to the emergency room after feeling fine yesterday experienced a 102 fever at home up to 103 when assessed in the ER found to have a negative chest x-ray but high suspicion for pneumonia so she was placed on IV antibiotics empirically for pneumonia protocol in addition to IV steroids nebulas treatments and oxygen supplementation. She reports that she is feeling much better and overall surprised how quickly the fever started and made her feel so ill. I reviewed her lab work showing leukocytosis of 18,000 but she is on prednisone taper given to her by Dr. Mcdonald's office when she was seen last week. At this current time I have reconciled all of her home medications of which she is requesting and will be aggressively treated to hopefully be able to discharge this weekend since your he has home oxygen at home. Progress Notes/Assess & Plan Date Seen 09/09/16 Admission Dx/Process Assessment: Fever of 103 with normal chest x-ray likely early pneumonia with leukocytosis empirically treating on pneumonia protocol Hypertension Oxygen dependency 24/7 at home Glaucoma Diagonsis/Assessment & Plan Patient had a recurrent fever placed on Tylenol again and pancultured and it is suspicious for endocarditis considering I discontinued vancomycin due to side effects yesterday and now she is having recurrent fever Dr. Pryor reviewed transthoracic echocardiogram was of poor quality so the question is whether or not a KALEB is needed to completely rule out endocarditis considering that would change the duration of antibiotics Due to the complexity of her medical problems I did go ahead and restart Zyvox considering she had the side effect with vancomycin and we'll maintain Zosyn per Dr. Pryor has a call into Dr. Mackay infectious disease specialist to guide therapy Her bowels are moving She is having fever and chills at times White count still elevated Will initiate swing bed status in case FUO additional w/u is needed We did talk about her long-standing dental problems with most of her teeth are dentures now so there is a possibility of a dental abscess causing the strep viridans as a source of the fever and all of her other issues No fever, vital signs stable, pleasant, no changes, chronically ill, appears mildly improved Regular rate rhythm, improved wheezing and rales on lung exam now CTAB No edema Laboratory Tests 09/08/16 20:28 09/09/16 04:57 Assessment: Fever of 103 with normal chest x-ray revealing early pneumonia RLL with leukocytosis empirically treating on pneumonia protocol with Zosyn and DC Vanc yesterday due to side effects but will start Zyvox due to Strep Viridans on Blood Cx and reaching out to ID to evaluate the next step in process of endocarditis but her lung status makes it difficult due to sedation that could cause respiratory failure so will consult Dr Mcdonald in the morning to help facilitate this Leukocytosis due to acute illness along with steroids continues today Hypertension Oxygen dependency 24/ at home Glaucoma Hyperglycemia due to steroids Tachycardia consulting Cardiology Plan: Oxygen supplementation Nebulizer treatments Pneumonia protocol with empiric antibiotics of Zosyn and restarted MRSA coverage with Zyvox Repeat labs in am along with CXR Decrease steroids since that could be causing her symptoms currently Consult Cardiology to evaluate Strep Viridans on BCx making me suspect need r/o for endocarditis so KALEB may be needed Panorex? OWEN REYES DO Sep 09, 2016 10:05
--- NOTE | 2016-09-09 10:25 | Diagnostic Imaging Report ---
INDICATION: Decreased O2 sat. Comparison with 09/07/2016. FINDINGS: Cardiomegaly is again noted. There continues to be mild prominence of pulmonary vasculature. There does appear to be mild bibasilar alveolar infiltrate or atelectasis. Small left basilar effusion. No pneumothorax. IMPRESSION: 1. Findings are again suggestive of mild pulmonary venous congestion. 2. Bibasal atelectasis and/or infiltrate is again noted. Dictated by: Dictated on workstation # [id number]
[2016-09-09] MEDS: LINEZOLID IVPB 300 ML IV SCH ×2 (10:37→21:04)
[2016-09-09] MEDS ORDERED: RT-ALBUTEROL SULF 2.5 MG/3 ML PRE-MIX VIAL IH SCH (11:00)
[2016-09-09] MEDS ORDERED: RT-ALBUTEROL SULF 2.5 MG/3 ML PRE-MIX VIAL IH PRN (12:00)
--- NOTE | 2016-09-09 15:13 | Diagnostic Imaging Report ---
INDICATION: Evaluation for possible dental abscess. History of endocarditis. FINDINGS: The maxilla is edentulous. There is a single molar tooth left on the left mandible with bicuspid and incisors present. There is dental caries with abnormal appearing crown of the incisor. No apical root abscesses are demonstrated. IMPRESSION: No findings to indicate apical root abscess at this time. Dictated by: Dictated on workstation # [id number]
[2016-09-09] MEDS: ATORVASTATIN 10 MG (LIPITOR) TABLET PO SCH (20:16)
[2016-09-09] MEDS: MONTELUKAST 10 MG (SINGULAIR) TAB PO SCH (20:16)
[2016-09-10] MEDS: PIPERACILLIN/TAZOBACTAM 4.5 GM/NS 100 ML IVPB IV SCH ×4 (00:35→08:22)
[2016-09-10] MEDS: CATHETER FLUSH 10 ML SYR IV PRN ×2 (00:35→08:11)
[2016-09-10] MEDS: RT-ALBUTEROL SULF 2.5 MG/3 ML PRE-MIX VIAL IH SCH ×3 (02:29→10:08)
[2016-09-10 03:08] VITALS: BP 145/71
[2016-09-10] MEDS: CALCIUM CARB + VIT D 600 MG (CALCARB + D) TAB PO SCH (06:08)
[2016-09-10] MEDS: ASCORBIC ACID (VIT C) 500 MG TABLET PO SCH (06:08)
[2016-09-10] MEDS: OMEGA 3 (FISH OIL) 1000 MG CAP PO SCH (06:08)
[2016-09-10] MEDS: MULTIVIT W/MINERALS TAB (THERAGRAN M) PO SCH (06:08)
[2016-09-10] MEDS ORDERED: TROUGH ORDER-PHARMACY XX ONE (07:00)
[2016-09-10 07:21] LABS: BASOPHILS % (AUTO) 0 % (0-10); EOSINOPHILS % (AUTO) 0 % (0-10); LYMPHOCYTES # (AUTO) 0.8 X 10^3 (1.0-4.0); LYMPHOCYTES % (AUTO) 4 % (12-44); MEAN CORPUSCULAR HEMOGLOBIN 30 PG (25-34); MEAN CORPUSCULAR HGB CONC 32 G/DL (32-36); MEAN CORPUSCULAR VOLUME 95 FL (80-99); MEAN PLATELET VOLUME 10.3 FL (7.4-10.4); MONOCYTES % (AUTO) 5 % (0-12); NEUTROPHILS # (AUTO) 17.2 X 10^3 (1.8-7.8); NEUTROPHILS % (AUTO) 91 % (42-75); PLATELET COUNT 239 10^3/uL (130-400); RED BLOOD COUNT 3.99 10^6/uL (4.35-5.85); RED CELL DISTRIBUTION WIDTH 14.9 % (10.0-14.5)
[2016-09-10 07:42] LABS: ALANINE AMINOTRANSFERASE 50 U/L (0-55); ALBUMIN 3.2 G/DL (3.2-4.5); ANION GAP 9 MMOL/L (5-14); ASPARTATE AMINO TRANSFERASE 28 U/L (5-34); BILIRUBIN,TOTAL 0.5 MG/DL (0.1-1.0); BLOOD UREA NITROGEN 17 MG/DL (7-18); BUN/CREATININE RATIO 19; CALCIUM 8.9 MG/DL (8.5-10.1); CARBON DIOXIDE 32 MMOL/L (21-32); CHLORIDE 101 MMOL/L (98-107); CREATININE SERUM 0.88 MG/DL (0.60-1.30); GFR ESTIMATED > 60; GLUCOSE 125 MG/DL (70-105); POTASSIUM 3.7 MMOL/L (3.6-5.0); SODIUM 142 MMOL/L (135-145); TOTAL PROTEIN 6.3 G/DL (6.4-8.2)
[2016-09-10] MEDS: methylPREDNISolone 40 MG/ML (Solu-MEDROL) VIAL IV SCH (08:11)
[2016-09-10] MEDS: CALCIUM CARBONATE 500 MG (TUMS) TAB.CHEW PO PRN (08:12)
[2016-09-10] MEDS: ASPIRIN E.C. 81 MG (ECOTRIN) TAB PO SCH (08:12)
[2016-09-10] MEDS: meTOprolol TARTRATE 50 MG (LOPRESSOR) TAB PO SCH (08:12)
[2016-09-10] MEDS: BETAXOLOL 0.5% OU SCH (08:12)
[2016-09-10] MEDS: LORATADINE (CLARITIN) 10 MG TAB PO SCH (08:12)
[2016-09-10] MEDS: FLUTICASONE NASAL SPRAY (FLONASE) 16 GM BTL NS SCH (08:13)
--- NOTE | 2016-09-10 08:13 | Cardiology Progress Note ---
Subjective Subjective/Events-last exam patient is laying down in bed, feeling better today, breathing better, had breakfast earlier today. Review of Systems General: No Chills, No Night Sweats, No Fatigue, No Malaise, No Appetite, No Other HEENT: No Head Aches, No Visual Changes, No Eye Pain, No Ear Pain, No Dysphasia , No Sinus Congestion, No Post Nasal Drip, No Sore Throat, No Other Pulmonary: Dyspnea, No Cough, No Pleuritic Chest Pain, No Other Cardiovascular: No: Chest Pain, Edema, Lt Headedness, Orthopnea, Other, Palpitations, Paroxysmal Noc. Dyspnea Objective-Cardiology Exam Last Set of Vital Signs Vital Signs 09/10/16 09/10/16 03:08 07:00 Temp 97.5 Pulse 78 Resp 22 B/P (MAP) 145/71 Pulse Ox 93 O2 Delivery Nasal Cannula O2 Flow Rate 4.50 Capillary Refill : Less Than 3 SecondsLess Than 3 Seconds I&O Intake and Output 09/10/16 00:00 Intake Total 2930 ml Output Total 3000 ml Balance -70 ml Intake Oral 2130 ml IV Total 800 ml Output Urine Total 3000 ml General: Alert, Oriented X3, Cooperative HEENT: Atraumatic, PERRLA Neck: Supple, No JVD, No Thyromegaly Lungs: Normal Air Movement, Other (bilateral rhonchi) Heart: Regular Rate, Normal S1, Normal S2, No Murmurs Abdomen: Normal Bowel Sounds, Soft, No Tenderness, No Hepatosplenomegaly, No Masses Extremities: No Clubbing, No Cyanosis, No Edema, Normal Pulses, No Tenderness/ Swelling Skin: No Rashes, No Breakdown, No Significant Lesion Neuro: Normal Gait, Normal Speech, Strength at 5/5 X4 Ext, Normal Tone, Sensation Intact Psych/Mental Status: Mental Status NL, Mood NL Results Lab Laboratory Tests 09/10/16 07:12 A/P-Cardiology Admission Diagnosis Acute respiratory insufficiency Pneumonia Sepsis Hypertension Assessment/Plan Sepsis, pneumonia, strep viridans and the blood, had a reaction to vancomycin, currently receiving Zosyn and Linezolide, managed by Dr. Sheehan, planning to evaluate KALEB on Saturday Shortness of breath, acute respiratory insufficiency, better today, reporting improvement. Continue to monitor History of severe COPD, using home oxygen, followed by Dr. Mcdonald. Hypertension, restart home medication continue to monitor blood pressure Hyperlipidemia, continue to monitor lipids History of mild bilateral carotid stenosis, last carotid ultrasound was done earlier this month. Continue to monitor History of tobaccoism Clinical Quality Measures DVT/VTE Risk/Contraindication: Risk Factor Score Per Nursin RFS Level Per Nursing on Admit: 4+=Very High JEAN SELF MD September 10, 2016 08:12
[2016-09-10 08:16] VITALS: BP 136/63
[2016-09-10] MEDS: LINEZOLID IVPB 300 ML IV SCH (10:05)
--- NOTE | 2016-09-10 10:07 | Discharge Summary-Hospitalist ---
Diagnosis/Chief Complaint Date of Admission Sep 06, 2016 at 11:00 Date of Discharge Discharge Date: September 10, 2016 Admission Diagnosis Assessment: Fever of 103 with normal chest x-ray likely early pneumonia with leukocytosis empirically treating on pneumonia protocol Hypertension Oxygen dependency 24/7 at home Glaucoma Discharge Diagnosis Assessment: Fever of 103 with normal chest x-ray revealing early pneumonia RLL with leukocytosis empirically treating on pneumonia protocol with Zosyn and DC Vanc yesterday due to side effects but will start Zyvox due to Strep Viridans on Blood Cx and reaching out to ID to evaluate the next step in process of endocarditis but her lung status makes it difficult due to sedation that could cause respiratory failure so will consult Dr Mcdonald in the morning to help facilitate this Leukocytosis due to acute illness along with steroids continues today Hypertension Oxygen dependency 24/7 at home Glaucoma Hyperglycemia due to steroids Tachycardia consulting Cardiology Patient had a recurrent fever placed on Tylenol again and pancultured and it is suspicious for endocarditis considering I discontinued vancomycin due to side effects yesterday and now she is having recurrent fever Dr. Pryor reviewed transthoracic echocardiogram was of poor quality so the question is whether or not a KALEB is needed to completely rule out endocarditis considering that would change the duration of antibiotics Due to the complexity of her medical problems I did go ahead and restart Zyvox considering she had the side effect with vancomycin and we'll maintain Zosyn per Dr. Pryor has a call into Dr. Mackay infectious disease specialist to guide therapy Her bowels are moving She is having fever and chills at times White count still elevated Will initiate swing bed status in case FUO additional w/u is needed We did talk about her long-standing dental problems with most of her teeth are dentures now so there is a possibility of a dental abscess causing the strep viridans as a source of the fever and all of her other issues No fever, vital signs stable, pleasant, no changes, chronically ill, appears mildly improved Regular rate rhythm, improved wheezing and rales on lung exam now CTAB No edema Laboratory Tests 09/08/16 20:28 09/09/16 04:57 Assessment: Fever of 103 with normal chest x-ray revealing early pneumonia RLL with leukocytosis empirically treating on pneumonia protocol with Zosyn and DC Vanc yesterday due to side effects but will start Zyvox due to Strep Viridans on Blood Cx and reaching out to ID to evaluate the next step in process of endocarditis but her lung status makes it difficult due to sedation that could cause respiratory failure so will consult Dr Mcdonald in the morning to help facilitate this Leukocytosis due to acute illness along with steroids continues today Hypertension Oxygen dependency 03/12 at home Glaucoma Hyperglycemia due to steroids Tachycardia consulting Cardiology Plan: Oxygen supplementation Nebulizer treatments Pneumonia protocol with empiric antibiotics of Zosyn and restarted MRSA coverage with Zyvox Repeat labs in am along with CXR Decrease steroids since that could be causing her symptoms currently Consult Cardiology to evaluate Strep Viridans on BCx making me suspect need r/o for endocarditis so KALEB may be needed Panorex? Reason Hospital Visit/Course CC: Fever with increased dyspnea HPI: This is a 76-year-old white female with known history of severe COPD oxygen dependent 03/12 in addition to pneumonia in the past required 10 days of hospitalization under Dr. alatorre service that presents to the emergency room after feeling fine yesterday experienced a 102 fever at home up to 103 when assessed in the ER found to have a negative chest x-ray but high suspicion for pneumonia so she was placed on IV antibiotics empirically for pneumonia protocol in addition to IV steroids nebulas treatments and oxygen supplementation. She reports that she is feeling much better and overall surprised how quickly the fever started and made her feel so ill. I reviewed her lab work showing leukocytosis of 18,000 but she is on prednisone taper given to her by Dr. Mcdonald's office when she was seen last week. At this current time I have reconciled all of her home medications of which she is requesting and will be aggressively treated to hopefully be able to discharge this weekend since your he has home oxygen at home. Note from 09/10/16: Patient doing much better and feels much better although she does have some urinary frequency of which UTIs being treated but symptoms remain so will start peridium We'll have Dr. Mcdonald's see her since he sees her on a regular basis Fever has dissipated since adding Zyvox and I did review antibiotic selection along with culture results in the panculture was done on Saturday afternoon is still no growth to date and Panorex showed no dental abscess for strep viridans on blood culture KALEB scheduled for Saturday by Dr. Pryor to fully evaluate for endocarditis Overall patient much better and feeling much better No fever, vital signs stable, much improved, pleasant, chronically ill Regular rate and rhythm, clear to auscultation bilaterally but diminished in the bases much improved No edema Hospital course: Patient had a lengthy hospital course she was admitted for fever of 103 and chest x-ray revealed possible early pneumonia infiltrate so she was placed on IV fluids IV steroids and nebulizer treatments oxygen supplementation empiric antibiotics. She was monitored closely due to leukocytosis that actually increased that she did have cultures results and strep viridans on blood culture so Panorex was obtained no evidence of any dental abscess but she does have a history of severe dental issues in the past. Dr. Mcdonald will see her in consultation on but she will have KALEB on Saturday to evaluate and rule out endocarditis but she will remain on Zyvox and Zosyn for now since she remains afebrile with that combination and she will be titrated down on steroids and remain on nebulizer treatments. Discharge Summary Discharge Physical Examination Allergies: Coded Allergies: No Known Drug Allergies (Unverified , 09/06/16) Vitals & I&Os Vital Signs Date Time Temp Pulse Resp B/P (MAP) Pulse Ox O2 Delivery O2 Flow Rate FiO2 09/10/16 08:16 96.4 76 20 136/63 93 Nasal Cannula 4.50 Hospital Course Labs (last 24 hrs) Laboratory Tests 09/10/16 07:12: White Blood Count 19.0H, Red Blood Count 3.99L, Hemoglobin 11.9, Hematocrit 38, Mean Corpuscular Volume 95, Mean Corpuscular Hemoglobin 30, Mean Corpuscular Hemoglobin Concent 32, Red Cell Distribution Width 14.9H, Platelet Count 239, Mean Platelet Volume 10.3, Neutrophils (%) (Auto) 91H, Lymphocytes (%) (Auto) 4L , Monocytes (%) (Auto) 5, Eosinophils (%) (Auto) 0, Basophils (%) (Auto) 0, Neutrophils # (Auto) 17.2H, Lymphocytes # (Auto) 0.8L, Monocytes # (Auto) 1.0, Eosinophils # (Auto) 0.0, Basophils # (Auto) 0.0, Sodium Level 142, Potassium Level 3.7, Chloride Level 101, Carbon Dioxide Level 32, Anion Gap 9, Blood Urea Nitrogen 17, Creatinine 0.88, Estimat Glomerular Filtration Rate > 60, BUN/ Creatinine Ratio 19, Glucose Level 125H, Calcium Level 8.9, Total Bilirubin 0.5 , Aspartate Amino Transf (AST/SGOT) 28, Alanine Aminotransferase (ALT/SGPT) 50, Alkaline Phosphatase 74, Total Protein 6.3L, Albumin 3.2, Vancomycin Level Trough < 0.4L Microbiology 09/08/16 Blood Culture - Preliminary, Resulted No growth 09/06/16 Influenza Types A,B Antigen (AIDAN) - Final, Complete 09/06/16 Urine Culture - Final, Complete Enterococcus Faecalis Pending Labs Laboratory Tests 09/10/16 07:12: White Blood Count 19.0, Red Blood Count 3.99, Hemoglobin 11.9, Hematocrit 38, Mean Corpuscular Volume 95, Mean Corpuscular Hemoglobin 30, Mean Corpuscular Hemoglobin Concent 32, Red Cell Distribution Width 14.9, Platelet Count 239, Mean Platelet Volume 10.3, Neutrophils (%) (Auto) 91, Lymphocytes (%) (Auto) 4, Monocytes (%) (Auto) 5, Eosinophils (%) (Auto) 0, Basophils (%) (Auto) 0, Neutrophils # (Auto) 17.2, Lymphocytes # (Auto) 0.8, Monocytes # (Auto) 1.0, Eosinophils # (Auto) 0.0, Basophils # (Auto) 0.0, Sodium Level 142, Potassium Level 3.7, Chloride Level 101, Carbon Dioxide Level 32, Anion Gap 9, Blood Urea Nitrogen 17, Creatinine 0.88, Estimat Glomerular Filtration Rate > 60, BUN/ Creatinine Ratio 19, Glucose Level 125, Calcium Level 8.9, Total Bilirubin 0.5, Aspartate Amino Transf (AST/SGOT) 28, Alanine Aminotransferase (ALT/SGPT) 50, Alkaline Phosphatase 74, Total Protein 6.3, Albumin 3.2, Vancomycin Level Trough < 0.4 Discharge Home Medications: Active Scripts Active Reported Cyclobenzaprine HCl 10 Mg Tablet 5 Mg PO Q8H PRN Breo Ellipta 200-25 Mcg INH (Fluticasone/Vilanterol) 1 Each Blst.w.dev 1 Puff IH DAILY Ascorbic Acid 500 Mg Tablet 500 Mg PO BID Spiriva Respimat (Tiotropium [place]) 4 Gm Mist.inhal 2 Puff INH DAILY Singulair (Montelukast Sodium) 10 Mg Tablet 10 Mg PO HS Refresh Eye Drops (Polyvinyl Alcohol/Povidone) 50 Ea Droperette 1 Drop OU Q12H PRN Aspirin Ec Low Dose (Aspirin) 81 Mg Tablet.dr 81 Mg PO DAILY Hm Calcium 600 + Vit D Tablet (Calcium Carbonate/Vitamin D3) 1 Each Tablet 1 Tab PO BID Betoptic 0.5% Ophthalmic Solution (Betaxolol Hcl) 5 Ml Drops 1 Drop OU BID Ventolin Hfa (Albuterol Sulfate) 1 Puff Puff 2 Puff IH QID PRN 15 MINUTES PRIOR TO EXERCISE Flonase (Fluticasone Propionate) 16 Gm [place] 2 Sprays NS DAILY Epipen 2-Mark (Epinephrine) 0.3 Mg/0.3 Ml Pen.injctr 0.3 Mg IM PRN PRN Atorvastatin Calcium 10 Mg Tablet 10 Mg PO HS Metoprolol Tartrate 50 Mg (Metoprolol Tartrate) 50 Mg Tablet 50 Mg PO BID Multi-Vitamin Daily (Multivitamin) 1 Each Tablet 1 Tab PO DAILY Fish Oil 1,200 Mg Softgel ([place]-3 Fatty Acids/Fish Oil) 1 Each Capsule 1 Tab PO BID All Day Allergy (Cetirizine HCl) 10 Mg Capsule 10 Mg PO DAILY Instructions to patient/family Please see electonic discharge instructions given to patient. Clinical Quality Measures DVT/VTE Risk/Contraindication: Risk Factor Score Per Nursin RFS Level Per Nursing on Admit: 4+=Very High OWEN REYES DO September 10, 2016 10:07
[2016-09-10] MEDS: RT-ADVAIR HFA 115/21 MCG PER PUFF IH SCH (10:10)
[2016-09-10] MEDS: UMECLIDINIUM BROMIDE (INCRUSE ELLIPTA) 7'S IH SCH (10:11)
--- NOTE | 2016-09-10 12:55 | Diagnostic Imaging Report ---
PA and lateral views of the chest. COMPARISON: 09/09/2016. INDICATION: Fever. FINDINGS: The lungs are hyperinflated with background interstitial thickening again seen. Element of vascular congestion is probably present. Bibasilar infiltrates more on the left side are seen. No effusion or pneumothorax. Mediastinum and delicia appear unremarkable. The heart size is mildly enlarged. IMPRESSION: Cardiomegaly with mild vascular congestion. Bibasilar patchy infiltrates more on the left side with no significant change from 09/09/2016. Dictated by: Dictated on workstation # [id number]
[2016-09-12] MEDS ORDERED: LINE600T5 PO (10:22)
== END 2016-09-10 10:05 | disposition swing bed (61) | DRG 190 ==
LOC: EDUNIT# 08:31 → ER 08:32 → 4TH 11:00
PROVIDERS: ADMIT Internal Medicine; ATTEND Internal Medicine
DX: J44.0 Chronic obstructive pulmonary disease with (acute) lower respiratory infection (principal); J15.4 Pneumonia due to other streptococci; J44.1 Chronic obstructive pulmonary disease with (acute) exacerbation; I10 Essential (primary) hypertension; J30.2 Other seasonal allergic rhinitis; M19.91 Primary osteoarthritis, unspecified site; M48.06 Spinal stenosis, lumbar region; Z99.81 Dependence on supplemental oxygen; Z85.42 Personal history of malignant neoplasm of other parts of uterus; H40.9 Unspecified glaucoma; T38.0X5A Adverse effect of glucocorticoids and synthetic analogues, initial encounter; I08.1 Rheumatic disorders of both mitral and tricuspid valves; Z87.891 Personal history of nicotine dependence; I65.23 Occlusion and stenosis of bilateral carotid arteries
CPT/HCPCS: 36415; 70355; 71010; 71020; 80053; 80202; 81000; 82805; 82962; 83605; 83880; 85007; 85025; 85027; 85610; 85730; 87040; 87077; 87088; 87186; 87804; 93306; 94640; 94664; 94760; 96361; 96374; 96375

== ENCOUNTER 2016-09-10 09:19 | Inpatient (IN) | payer MEDICARE ==
[~2016-09-10] VITALS: Ht 160 cm; Wt 81.7 kg
[~2016-09-10 09:19] MED LIST changes: +ASCO500T7 PO; +CYCL10TA9 PO; +FLUT1BLS IH; +TIOT4MIS2 INH
[2016-09-10] MEDS ORDERED: ACETAMINOPHEN 500 MG TAB (TYLENOL) PO PRN (10:15)
[2016-09-10] MEDS ORDERED: ARTIFICAL TEARS 0.4 ML UNIT DOSE (REFRESH PLUS) OU PRN (10:15)
[2016-09-10] MEDS ORDERED: SALIVA STIMULANT MOUTH SPRAY (BIOTENE) 1.5 OZ MM PRN (10:15)
[2016-09-10] MEDS ORDERED: PIPERACILLIN SODIUM/TAZOBACTAM 4.5 GM in NS (IVPB) 100 ML IV SCH (10:15)
[2016-09-10] MEDS ORDERED: CYCLOBENZAPRINE 10 MG (FLEXERIL) TAB PO PRN (10:15)
[2016-09-10] MEDS ORDERED: RT-ALBUTEROL SULF 2.5 MG/3 ML PRE-MIX VIAL IH PRN (10:30)
[2016-09-10] MEDS: ALPRAZolam 0.25 MG (XANAX) TAB PO PRN ×2 (11:53→19:31)
[2016-09-10] MEDS: PHENAZOPYRIDINE 100 MG (PYRIDIUM) TABLET PO SCH ×2 (12:02→16:51)
[2016-09-10] MEDS: CALCIUM CARBONATE 500 MG (TUMS) TAB.CHEW PO PRN ×3 (13:58→19:35)
[2016-09-10] MEDS: RT-ALBUTEROL SULF 2.5 MG/3 ML PRE-MIX VIAL IH SCH ×3 (15:17→21:29)
[2016-09-10 16:00] VITALS: BP 157/77
[2016-09-10] MEDS: PIPERACILLIN SODIUM/TAZOBACTAM 4.5 GM in NS (IVPB) 100 ML IV SCH (16:49)
[2016-09-10] MEDS: ASCORBIC ACID (VIT C) 500 MG TABLET PO SCH (16:50)
[2016-09-10] MEDS: CALCIUM CARB + VIT D 600 MG (CALCARB + D) TAB PO SCH (16:50)
[2016-09-10] MEDS: OMEGA 3 (FISH OIL) 1000 MG CAP PO SCH (16:52)
[2016-09-10] MEDS: RT-ADVAIR HFA 115/21 MCG PER PUFF IH SCH (18:48)
[2016-09-10] MEDS: BETAXOLOL 0.5% OU SCH (19:32)
[2016-09-10] MEDS: MONTELUKAST 10 MG (SINGULAIR) TAB PO SCH (19:32)
[2016-09-10] MEDS: ATORVASTATIN 10 MG (LIPITOR) TABLET PO SCH (19:32)
[2016-09-10] MEDS: meTOprolol TARTRATE 50 MG (LOPRESSOR) TAB PO SCH (19:32)
[2016-09-10 19:46] VITALS: BP 166/83
[2016-09-10] MEDS: CATHETER FLUSH 10 ML SYR IV PRN (20:06)
[2016-09-10] MEDS: methylPREDNISolone 40 MG/ML (Solu-MEDROL) VIAL IV SCH (20:06)
[2016-09-10] MEDS: LINEZOLID IVPB 300 ML IV SCH (21:21)
[2016-09-11] VITALS: BP 137/80
[2016-09-11] MEDS: PIPERACILLIN SODIUM/TAZOBACTAM 4.5 GM in NS (IVPB) 100 ML IV SCH ×3 (00:27→17:14)
[2016-09-11] MEDS: RT-ALBUTEROL SULF 2.5 MG/3 ML PRE-MIX VIAL IH SCH ×6 (02:25→21:13)
[2016-09-11 04:00] VITALS: BP 132/72
[2016-09-11] MEDS: ASCORBIC ACID (VIT C) 500 MG TABLET PO SCH ×2 (06:04→17:14)
[2016-09-11] MEDS: MULTIVIT W/MINERALS TAB (THERAGRAN M) PO SCH (06:04)
[2016-09-11] MEDS: OMEGA 3 (FISH OIL) 1000 MG CAP PO SCH ×2 (06:04→17:14)
[2016-09-11] MEDS: CALCIUM CARB + VIT D 600 MG (CALCARB + D) TAB PO SCH ×2 (06:04→17:14)
[2016-09-11] MEDS: RT-ADVAIR HFA 115/21 MCG PER PUFF IH SCH ×2 (06:59→18:59)
[2016-09-11 08:00] VITALS: BP 131/70
--- NOTE | 2016-09-11 08:02 | Cardiology Progress Note ---
Subjective Subjective/Events-last exam patient is laying down in bed, had an episode of chest pain yesterday, responded to Tums, denied any palpitation, her breathing is better. Her fever is better Review of Systems General: No Chills, No Night Sweats, No Fatigue, No Malaise, No Appetite, No Other HEENT: No Head Aches, No Visual Changes, No Eye Pain, No Ear Pain, No Dysphasia , No Sinus Congestion, No Post Nasal Drip, No Sore Throat, No Other Pulmonary: No Dyspnea, No Cough, No Pleuritic Chest Pain, No Other Cardiovascular: Chest Pain, No: Edema, Lt Headedness, Orthopnea, Other, Palpitations, Paroxysmal Noc. Dyspnea Objective-Cardiology Exam Last Set of Vital Signs Vital Signs 09/11/16 09/11/16 09/11/16 04:00 07:00 07:08 Temp 97.1 Pulse 73 Resp 20 B/P (MAP) 132/72 Pulse Ox 90 O2 Delivery Nasal Cannula O2 Flow Rate 4.00 Capillary Refill : I&O Intake and Output 09/11/16 00:00 Intake Total 2440 ml Output Total 1300 ml Balance 1140 ml Intake Oral 2040 ml IV Total 400 ml Output Urine Total 1300 ml General: Alert, Oriented X3, Cooperative HEENT: Atraumatic, PERRLA Neck: Supple, No JVD, No Thyromegaly Lungs: Clear to Auscultation, Normal Air Movement Heart: Regular Rate, Normal S1, Normal S2, No Murmurs Abdomen: Normal Bowel Sounds, Soft, No Tenderness, No Hepatosplenomegaly, No Masses Extremities: No Clubbing, No Cyanosis, No Edema, Normal Pulses, No Tenderness/ Swelling Skin: No Rashes, No Breakdown, No Significant Lesion Neuro: Normal Gait, Normal Speech, Strength at 5/5 X4 Ext, Normal Tone, Sensation Intact Psych/Mental Status: Mental Status NL, Mood NL Results Lab labs are pending A/P-Cardiology Admission Diagnosis Sepsis Chest pain Hypertension COPD Assessment/Plan Sepsis, pneumonia, strep viridans and the blood, had a reaction to vancomycin, currently receiving Zosyn and Linezolide, managed by Dr. Sheehan, planning to evaluate KALEB on Saturday Chest pain, self-limited occurred yesterday, improved after Tums, patient describes episode of tightness all over her chest. last stress test was done in May 2013 and did not show any ischemia or infarction, normal LV function. I will evaluate 12-lead EKG, continue to monitor. Shortness of breath, acute respiratory insufficiency, Improving, continue on current medications and monitor. History of severe COPD, using home oxygen, followed by Dr. Mcdonald. Hypertension, better control, continue to monitor blood pressure Hyperlipidemia, continue to monitor lipids History of mild bilateral carotid stenosis, last carotid ultrasound was done earlier this month. Continue to monitor History of tobaccoism JEAN SELF MD September 11, 2016 08:02
[2016-09-11] MEDS: PHENAZOPYRIDINE 100 MG (PYRIDIUM) TABLET PO SCH ×3 (08:12→17:14)
[2016-09-11] MEDS: ASPIRIN E.C. 81 MG (ECOTRIN) TAB PO SCH (08:12)
[2016-09-11] MEDS: LORATADINE (CLARITIN) 10 MG TAB PO SCH (08:12)
[2016-09-11] MEDS: methylPREDNISolone 40 MG/ML (Solu-MEDROL) VIAL IV SCH ×2 (08:12→20:10)
[2016-09-11] MEDS: meTOprolol TARTRATE 50 MG (LOPRESSOR) TAB PO SCH ×2 (08:12→20:10)
[2016-09-11] MEDS: BETAXOLOL 0.5% OU SCH ×2 (08:13→20:15)
[2016-09-11] MEDS: FLUTICASONE NASAL SPRAY (FLONASE) 16 GM BTL NS SCH (08:13)
--- NOTE | 2016-09-11 08:34 | Pulmonary Progress Note ---
Exam Exam Vital Signs Date Time Temp Pulse Resp B/P (MAP) Pulse Ox O2 Delivery O2 Flow Rate FiO2 09/11/16 07:08 90 4.00 09/11/16 07:00 73 09/11/16 04:00 97.1 71 20 132/72 90 Nasal Cannula 4.50 09/11/16 02:26 90 4.00 09/11/16 01:00 69 09/11/16 00:00 97.1 71 18 137/80 92 Nasal Cannula 4.50 09/10/16 21:29 90 4.00 09/10/16 21:00 4.00 09/10/16 19:46 97.5 110 24 166/83 91 Nasal Cannula 4.50 09/10/16 19:00 95 09/10/16 18:56 4.00 09/10/16 18:48 90 4.00 09/10/16 16:00 96.5 97 20 157/77 92 Nasal Cannula 4.50 09/10/16 15:17 91 4.00 09/10/16 13:00 77 I & O 09/11/16 07:00 Intake Total 2650 ml Output Total 1900 ml Balance 750 ml Assessment/Plan Assessment/Plan Sepsis pneumonia, strep viridans, bacteremia -KALEB tomorrow -continue Abx Chest pain Hypertension COPD continue oxygen -MAT JUAN CARLOS WALKER DO September 11, 2016 08:34
[2016-09-11] MEDS: LINEZOLID IVPB 300 ML IV SCH ×2 (09:21→21:45)
--- NOTE | 2016-09-11 09:33 | Progress Note-Hospitalist ---
Progress Note Progress Notes/Assess & Plan Date Seen 09/11/16 Diagonsis/Assessment & Plan Patient continues to be anxious and yesterday had an episode of chest pain of which she was convinced she had a heart attack but ended up being some sort of acute reflux episode Will have KALEB tomorrow Maintains on Zosyn and Zyvox and remains afebrile Bowel movement stable No fever, vital signs stable, pleasant, improved Regular rate and rhythm, clear to auscultation bilaterally diminished breath sounds noted No edema Assessment: Fever of 103 with normal chest x-ray revealing early pneumonia RLL with leukocytosis empirically treating on pneumonia protocol with Zosyn and DC Vanc 4 days ago due to side effects but started Zyvox due to Strep Viridans on Blood Cx and evaluating for endocarditis with KALEB tomorrow Leukocytosis due to acute illness along with steroids Hypertension Oxygen dependency 03/12 at home Glaucoma Hyperglycemia due to steroids Tachycardia consulting Cardiology Plan: Monitor for fever Maintain antibiotics T tomorrow Appreciate Dr. Mcdonald's help Appreciate OWEN Nieves DO September 11, 2016 09:33
[2016-09-11] MEDS: UMECLIDINIUM BROMIDE (INCRUSE ELLIPTA) 7'S IH SCH (10:32)
[2016-09-11 12:00] VITALS: BP 148/80
[2016-09-11 15:40] VITALS: BP 134/72
[2016-09-11 19:40] VITALS: BP 116/65
[2016-09-11] MEDS: MONTELUKAST 10 MG (SINGULAIR) TAB PO SCH (20:10)
[2016-09-11] MEDS: ATORVASTATIN 10 MG (LIPITOR) TABLET PO SCH (20:10)
[2016-09-11] MEDS: CALCIUM CARBONATE 500 MG (TUMS) TAB.CHEW PO PRN (20:16)
[2016-09-12] VITALS (16 sets, daily range): BP systolic 126–158; BP diastolic 59–86
[2016-09-12] MEDS: PIPERACILLIN SODIUM/TAZOBACTAM 4.5 GM in NS (IVPB) 100 ML IV SCH ×3 (01:09→17:08)
[2016-09-12] MEDS: RT-ALBUTEROL SULF 2.5 MG/3 ML PRE-MIX VIAL IH SCH ×6 (03:03→22:34)
[2016-09-12 05:57] LABS: BASOPHILS % (AUTO) 0 % (0-10); EOSINOPHILS % (AUTO) 0 % (0-10); LYMPHOCYTES % (AUTO) 10 % (12-44); MEAN CORPUSCULAR HEMOGLOBIN 30 PG (25-34); MEAN CORPUSCULAR HGB CONC 32 G/DL (32-36); MEAN CORPUSCULAR VOLUME 93 FL (80-99); MEAN PLATELET VOLUME 9.9 FL (7.4-10.4); MONOCYTES # (AUTO) 0.5 X 10^3 (0.0-1.0); MONOCYTES % (AUTO) 5 % (0-12); NEUTROPHILS # (AUTO) 8.5 X 10^3 (1.8-7.8); NEUTROPHILS % (AUTO) 85 % (42-75); PLATELET COUNT 320 10^3/uL (130-400); RED BLOOD COUNT 4.01 10^6/uL (4.35-5.85); RED CELL DISTRIBUTION WIDTH 14.6 % (10.0-14.5)
[2016-09-12 06:07] LABS: INR 1.1 (0.8-1.4); PROTHROMBIN TIME PATIENT 14.1 SEC (12.2-14.7)
[2016-09-12 06:19] LABS: ALBUMIN 3.3 G/DL (3.2-4.5); BILIRUBIN,TOTAL 0.6 MG/DL (0.1-1.0); CALCIUM 8.8 MG/DL (8.5-10.1); CREATININE SERUM 0.91 MG/DL (0.60-1.30); POTASSIUM 4.1 MMOL/L (3.6-5.0); TOTAL PROTEIN 6.2 G/DL (6.4-8.2)
[2016-09-12] MEDS: CALCIUM CARB + VIT D 600 MG (CALCARB + D) TAB PO SCH ×2 (06:21→17:08)
[2016-09-12] MEDS: MULTIVIT W/MINERALS TAB (THERAGRAN M) PO SCH (06:21)
[2016-09-12] MEDS: OMEGA 3 (FISH OIL) 1000 MG CAP PO SCH ×2 (06:21→17:08)
[2016-09-12] MEDS: ASCORBIC ACID (VIT C) 500 MG TABLET PO SCH ×2 (06:21→17:08)
--- NOTE | 2016-09-12 07:15 | Pulmonary Progress Note ---
Exam Exam Vital Signs Date Time Temp Pulse Resp B/P (MAP) Pulse Ox O2 Delivery O2 Flow Rate FiO2 09/12/16 03:40 97.5 70 20 143/70 92 Nasal Cannula 4.50 09/12/16 03:03 94 4.00 09/12/16 01:00 73 09/12/16 00:00 98.0 77 20 127/70 92 Nasal Cannula 4.50 09/11/16 21:14 93 4.00 09/11/16 20:15 4.00 09/11/16 19:40 98.1 82 20 116/65 93 Nasal Cannula 4.50 09/11/16 19:05 93 4.00 09/11/16 19:00 85 09/11/16 18:59 91 4.00 09/11/16 15:40 97.1 77 20 134/72 95 Nasal Cannula 4.50 09/11/16 13:59 4.00 09/11/16 13:00 74 09/11/16 12:00 96.6 81 20 148/80 93 Nasal Cannula 4.50 09/11/16 10:41 4.00 09/11/16 08:15 92 4.50 09/11/16 08:00 96.1 78 20 131/70 92 Nasal Cannula 4.50 I & O 09/12/16 07:00 Intake Total 3045 ml Output Total 2650 ml Balance 395 ml General Appearance: No Apparent Distress, WD/WN Neck: Full Range of Motion, Normal Inspection Respiratory: No Accessory Muscle Use, No Respiratory Distress, Decreased Breath Sounds Cardiovascular: No Edema, No Gallop Gastrointestinal: normal bowel sounds, non tender Neurologic/Psychiatric: Alert, Oriented x3 Skin: Normal Color, Warm/Dry Lymphatic: No Adenopathy Results Lab Laboratory Tests 09/12/16 05:49 Assessment/Plan Assessment/Plan Sepsis pneumonia, strep viridans, bacteremia -KALEB today -continue Abx Chest pain Hypertension COPD continue oxygen -JUAN CARLOS AGEE DO September 12, 2016 07:15
[2016-09-12] MEDS: RT-ADVAIR HFA 115/21 MCG PER PUFF IH SCH ×2 (07:46→19:09)
[2016-09-12] MEDS: UMECLIDINIUM BROMIDE (INCRUSE ELLIPTA) 7'S IH SCH (07:46)
[2016-09-12] MEDS: ASPIRIN E.C. 81 MG (ECOTRIN) TAB PO SCH (09:37)
[2016-09-12] MEDS: meTOprolol TARTRATE 50 MG (LOPRESSOR) TAB PO SCH ×2 (09:37→21:00)
[2016-09-12] MEDS: LORATADINE (CLARITIN) 10 MG TAB PO SCH (09:37)
[2016-09-12] MEDS: PHENAZOPYRIDINE 100 MG (PYRIDIUM) TABLET PO SCH ×3 (09:37→17:08)
[2016-09-12] MEDS: FLUTICASONE NASAL SPRAY (FLONASE) 16 GM BTL NS SCH (09:38)
[2016-09-12] MEDS: LINEZOLID IVPB 300 ML IV SCH ×2 (09:38→21:02)
[2016-09-12] MEDS: BETAXOLOL 0.5% OU SCH ×2 (09:39→20:59)
[2016-09-12] MEDS: methylPREDNISolone 40 MG/ML (Solu-MEDROL) VIAL IV SCH ×2 (09:39→20:59)
[2016-09-12] MEDS ORDERED: LINE600T5 PO (10:22)
--- NOTE | 2016-09-12 10:49 | Progress Note-Hospitalist ---
Progress Note Progress Notes/Assess & Plan Date Seen 09/12/16 Diagonsis/Assessment & Plan Chart Review: No fever for 60+ hrs WBC normal at 10 CMP normal Remains on Zosyn and Zyvox Having KALEB today at 1500 Dr. Pryor Review: KALEB will be performed today at 1500 if she stays NPO Patient Interview: Pt would like to eat breakfast before her surgery. Dr. Reyes tells pt that she will be on clear liquid diet if approved by Dr Pryor. Pt's fever was discussed Pt would like to receive portable O2 at home Physical exam stable Pt has been having loose BMs Pt confirms [facility] No fever, vital signs stable, pleasant, improved Regular rate and rhythm, clear to auscultation bilaterally diminished breath sounds noted No edema Assessment: Fever of 103 with normal chest x-ray revealing early pneumonia RLL with leukocytosis empirically treating on pneumonia protocol with Zosyn and DC Vanc 5 days ago due to side effects but started Zyvox due to Strep Viridans on Blood Cx and evaluating for endocarditis with KALEB today Leukocytosis due to acute illness along with steroids Hypertension Oxygen dependency 24/7 at home Glaucoma Hyperglycemia due to steroids Tachycardia consulting Cardiology Plan: Monitor fever Maintain antibiotics Appreciate Dr. Mcdonald's help Appreciate Dr. Pryor help KALEB today at 1500 Likely DC tomorrow Follow up with Dr. Mcdonald and Dr. Medina upon DC Send steroids to pharmacy once DC along with Zyvox and additional abx Home O2 Scribed by Sue Serrano under the direct supervision of Dr. Reyes. OWEN REYES DO September 12, 2016 10:49
--- NOTE | 2016-09-12 11:48 | Cardiology Progress Note ---
Subjective Subjective/Events-last exam Patient is sitting up in bed, no new complaints. Planning for KALEB for further evaluation this afternoon. Review of Systems General: No Night Sweats, No Fatigue, No Malaise HEENT: No Visual Changes, No Dysphasia, No Sore Throat Pulmonary: No Dyspnea, No Cough Cardiovascular: No: Chest Pain, Edema, Palpitations, Paroxysmal Noc. Dyspnea Gastrointestinal: No: Abdominal Pain, Nausea, Vomiting Genitourinary: No Dysuria, No Frequency Musculoskeletal: No: back pain, neck pain Neurological: No: Change in speech, Confusion, Numbness, Weakness Objective-Cardiology Exam Last Set of Vital Signs Vital Signs 09/12/16 10:45 Pulse Ox 92 O2 Flow Rate 4.00 Capillary Refill : I&O Intake and Output 09/12/16 00:00 Intake Total 3255 ml Output Total 1950 ml Balance 1305 ml Intake Oral 2655 ml IV Total 600 ml Output Urine Total 1950 ml # Voids 1 # Bowel Movements 2 General: Alert, Oriented X3, Cooperative HEENT: Atraumatic, PERRLA Neck: Supple, No JVD, No Thyromegaly Lungs: Clear to Auscultation, Normal Air Movement Heart: Regular Rate, Normal S1, Normal S2, No Murmurs Abdomen: Normal Bowel Sounds, Soft, No Tenderness, No Hepatosplenomegaly, No Masses Extremities: No Clubbing, No Cyanosis, No Edema, Normal Pulses, No Tenderness/ Swelling Skin: No Rashes, No Breakdown, No Significant Lesion Neuro: Normal Gait, Normal Speech, Strength at 5/5 X4 Ext, Normal Tone, Sensation Intact Psych/Mental Status: Mental Status NL, Mood NL Results Lab Laboratory Tests 09/12/16 05:49 A/P-Cardiology Admission Diagnosis Sepsis Chest pain Hypertension COPD Assessment/Plan Sepsis, pneumonia, strep viridans and the blood, had a reaction to vancomycin, currently receiving Zosyn and Linezolide, managed by Dr. Sheehan, planning to evaluate KALEB this afternnon. keep NPO Chest pain, self-limited occurred yesterday, improved after Tums, patient describes episode of tightness all over her chest. last stress test was done in May 2013 and did not show any ischemia or infarction, normal LV function. I will evaluate 12-lead EKG, continue to monitor. Shortness of breath, acute respiratory insufficiency, Improving, continue on current medications and monitor. History of severe COPD, using home oxygen, followed by Dr. Mcdonald. Hypertension, better control, continue to monitor blood pressure Hyperlipidemia, continue to monitor lipids History of mild bilateral carotid stenosis, last carotid ultrasound was done earlier this month. Continue to monitor History of tobaccoism SIRENA DE LOS SANTOS September 12, 2016 11:48
--- NOTE | 2016-09-12 12:50 | Cardiology Progress Note ---
Subjective Subjective/Events-last exam patient is feeling well, took her medicine this morning which will cause a delay in doing her KALEB, she denied any chest pain or shortness of breath. No palpitation. Feeling better. No fever today. Review of Systems General: No Chills, No Night Sweats, No Fatigue, No Malaise, No Appetite, No Other HEENT: No Head Aches, No Visual Changes, No Eye Pain, No Ear Pain, No Dysphasia , No Sinus Congestion, No Post Nasal Drip, No Sore Throat, No Other Pulmonary: No Dyspnea, No Cough, No Pleuritic Chest Pain, No Other Cardiovascular: No: Chest Pain, Edema, Lt Headedness, Orthopnea, Other, Palpitations, Paroxysmal Noc. Dyspnea Objective-Cardiology Exam Last Set of Vital Signs Vital Signs 09/12/16 11:56 Temp 96.1 Pulse 63 Resp 20 B/P (MAP) 158/71 Pulse Ox 93 O2 Delivery Nasal Cannula O2 Flow Rate 4.50 Capillary Refill : I&O Intake and Output 09/12/16 00:00 Intake Total 3255 ml Output Total 1950 ml Balance 1305 ml Intake Oral 2655 ml IV Total 600 ml Output Urine Total 1950 ml # Voids 1 # Bowel Movements 2 General: Alert, Oriented X3, Cooperative HEENT: Atraumatic, PERRLA Neck: Supple, No JVD, No Thyromegaly Lungs: Clear to Auscultation, Normal Air Movement Heart: Regular Rate, Normal S1, Normal S2, No Murmurs Abdomen: Normal Bowel Sounds, Soft, No Tenderness, No Hepatosplenomegaly, No Masses Extremities: No Clubbing, No Cyanosis, No Edema, Normal Pulses, No Tenderness/ Swelling Skin: No Rashes, No Breakdown, No Significant Lesion Neuro: Normal Gait, Normal Speech, Strength at 5/5 X4 Ext, Normal Tone, Sensation Intact Psych/Mental Status: Mental Status NL, Mood NL Results Lab Laboratory Tests 09/12/16 05:49 A/P-Cardiology Admission Diagnosis Sepsis Chest pain Hypertension COPD Assessment/Plan Sepsis, pneumonia, strep viridans and the blood, had a reaction to vancomycin, currently receiving Zosyn and Linezolide, managed by Dr. Sheehan, planning to evaluate KALEB this afternnon. keep NPO Chest pain, self-limited occurred yesterday, improved after Tums, patient describes episode of tightness all over her chest. last stress test was done in May 2013 and did not show any ischemia or infarction, normal LV function. I will evaluate 12-lead EKG, continue to monitor. Shortness of breath, acute respiratory insufficiency, Improving, continue on current medications and monitor. History of severe COPD, using home oxygen, followed by Dr. Mcdonald. Hypertension, better control, continue to monitor blood pressure Hyperlipidemia, continue to monitor lipids History of mild bilateral carotid stenosis, last carotid ultrasound was done earlier this month. Continue to monitor History of tobaccoism JEAN SELF MD September 12, 2016 12:50
--- NOTE | 2016-09-12 12:51 | Cardiac Procedure Note-CS/ASA ---
Pre-Procedure Note Pre-Op Procedure Note H&P Reviewed The H&P was reviewed, patient examined and no changes noted. Date H&P Reviewed: September 12, 2016 Time H&P Reviewed: 12:51 Conscious Sedation Pre-Proced Time Reviewed: 12:51 ASA Class: 3 Airway Mallampati Classification: ([place] appropriate class) I. II. III, IV Lungs Heart ASA score ASA 1: a normal healthy patient ASA 2: a patient with a mild systemic disease (mid diabetes, controlled hypertension, obesity x ASA 3: a patient with a severe systemic disease that limits activity (angina , COPD, prior Myocardial infarction) ASA 4: a patient with an incapacitating disease that is a constant threat to life (CHF, renal failure) ASA 5: a moribund patient not expected to survive 24 hrs. (ruptured aneurysm) ASA 6: a declared brain patient whose organs are being harvested. For emergent operations, add the letter E after the classification Grade 3 Sedation Plan: Analgesia, Amnesia, Plan communicated to team members, Discussed options with patient/fam, Discussed risks with patient/fam Note The patient is an appropriate candidate to undergo the planned procedure, sedation, and anesthesia. The patient immediately re-assessed prior to indication. JEAN SELF MD September 12, 2016 12:51
[2016-09-12] MEDS ORDERED: LIDOCAINE 2% VISCOUS 15 ML UDC ONE (14:09)
[2016-09-12] MEDS ORDERED: fentaNYL INJECTION 100 MCG/2 ML AMP ONE (14:09)
[2016-09-12] MEDS ORDERED: MIDAZOLAM 2 MG/2 ML (VERSED) VIAL ONE (14:09)
[2016-09-12] MEDS ORDERED: NS IV 1000 ML 1,000 ML ONE (14:14)
[2016-09-12] MEDS ORDERED: MIDAZOLAM 2 MG/2 ML (VERSED) VIAL IVP ONE (15:15)
[2016-09-12] MEDS ORDERED: LIDOCAINE 2% VISCOUS 15 ML UDC PO ONE (15:15)
[2016-09-12] MEDS ORDERED: fentaNYL INJECTION 100 MCG/2 ML AMP IVP ONE (15:15)
[2016-09-12] MEDS: CATHETER FLUSH 10 ML SYR IV PRN (17:08)
[2016-09-12] MEDS: CALCIUM CARBONATE 500 MG (TUMS) TAB.CHEW PO PRN (20:59)
[2016-09-12] MEDS: MONTELUKAST 10 MG (SINGULAIR) TAB PO SCH (20:59)
[2016-09-12] MEDS: ATORVASTATIN 10 MG (LIPITOR) TABLET PO SCH (20:59)
[2016-09-13] VITALS: BP 119/48
[2016-09-13] MEDS: PIPERACILLIN SODIUM/TAZOBACTAM 4.5 GM in NS (IVPB) 100 ML IV SCH ×2 (01:30→10:43)
[2016-09-13] MEDS: RT-ALBUTEROL SULF 2.5 MG/3 ML PRE-MIX VIAL IH SCH ×4 (02:18→14:42)
[2016-09-13 04:00] VITALS: BP 160/80
[2016-09-13] MEDS: MULTIVIT W/MINERALS TAB (THERAGRAN M) PO SCH (06:03)
[2016-09-13] MEDS: ASCORBIC ACID (VIT C) 500 MG TABLET PO SCH (06:03)
[2016-09-13] MEDS: OMEGA 3 (FISH OIL) 1000 MG CAP PO SCH (06:03)
[2016-09-13] MEDS: CALCIUM CARB + VIT D 600 MG (CALCARB + D) TAB PO SCH (06:03)
[2016-09-13] MEDS: UMECLIDINIUM BROMIDE (INCRUSE ELLIPTA) 7'S IH SCH (07:03)
[2016-09-13] MEDS: RT-ADVAIR HFA 115/21 MCG PER PUFF IH SCH (07:03)
[2016-09-13] MEDS: CALCIUM CARBONATE 500 MG (TUMS) TAB.CHEW PO PRN (07:21)
--- NOTE | 2016-09-13 07:36 | TEE REPORT ---
DATE OF SERVICE: 09/12/2016 TRANSESOPHAGEAL ECHOCARDIOGRAM REPORT REFERRING PHYSICIAN: Hilda Sheehan DO INDICATIONS: Strep viridans sepsis, rule out endocarditis. PROCEDURE NOTE: After I explained the procedure to the patient, all the pros and cons were explained, all questions were answered. The patient signed the consent, then she was placed on the left lateral decubitus position. Oropharynx was anesthetized using lidocaine spray. Omniplane probe was introduced through the mouth to the esophagus then to the stomach. Multiple views were obtained. At the end of the procedure Omniplane probe was removed. No complications noted. FINDINGS: 1. The left ventricle is normal in size with normal contractility, systolic function is normal, estimated ejection fraction is 60%. 2. The left atrium is normal in size. No clot or thrombus was seen within the left atrium. 3. The right atrium and right ventricle are normal in size. No clots or thrombus were seen within the right side. 4. Mitral valve is normal in morphology with moderate mitral regurgitation noted bilateral color Doppler flow. No vegetation was noted. No mitral valve stenosis. 5. Aortic valve is trileaflet with normal opening and closing pattern. No aortic stenosis or regurgitation was seen. No vegetation was noted. 6. Tricuspid valve is normal in morphology with mild tricuspid regurgitation noted. No vegetation was noted. 7. Pulmonic valve is functioning normally with no vegetation. 8. Intraatrial septum was evaluated using both color Doppler flow and agitated saline and contrast media. Small patent foramen ovale with left to right shunt was noted. 9. No pericardial effusion. 10. Portions of the thoracic aorta were evaluated and appeared normal. IN CONCLUSION: 1. No vegetation was noted on any valvular structure. 2. Normal left ventricular size and systolic function, estimated ejection fraction is 60%. 3. Small patent foramen ovale with left to right shunt was noted. 4. Moderate mitral regurgitation, mild tricuspid regurgitation. Job ID: [id number] DocumentID: [id number] Dictated Date: 09/12/2016 15:01:04 Implementation Services Analyst Date: 09/12/2016 19:53:34 Dictated By: JEAN SELF MD
--- NOTE | 2016-09-13 07:52 | Pulmonary Progress Note ---
Exam Exam Vital Signs Date Time Temp Pulse Resp B/P (MAP) Pulse Ox O2 Delivery O2 Flow Rate FiO2 09/13/16 07:12 95 4.00 09/13/16 07:11 95 4.00 09/13/16 07:04 92 4.00 09/13/16 04:00 97.8 72 18 160/80 93 Nasal Cannula 4.00 09/13/16 02:19 93 4.00 09/13/16 01:01 68 09/13/16 00:00 96.3 69 20 119/48 92 Nasal Cannula 4.00 09/12/16 22:34 92 4.00 09/12/16 20:55 4.00 09/12/16 20:30 98.8 74 21 129/61 92 Nasal Cannula 4.00 09/12/16 19:30 98.1 89 20 126/59 92 Nasal Cannula 4.00 09/12/16 19:15 92 4.00 09/12/16 19:10 92 4.00 09/12/16 19:06 87 09/12/16 18:30 98.0 85 21 135/63 90 Nasal Cannula 4.00 09/12/16 17:30 96.8 74 20 140/85 93 Nasal Cannula 4.50 09/12/16 17:00 72 143/86 92 Nasal Cannula 4.50 09/12/16 16:45 71 133/80 92 Nasal Cannula 4.50 09/12/16 16:30 68 130/75 93 Nasal Cannula 4.50 09/12/16 16:15 70 133/83 93 Nasal Cannula 4.50 09/12/16 16:00 67 131/74 92 Nasal Cannula 4.50 09/12/16 15:45 96.7 65 22 130/71 92 Nasal Cannula 4.50 09/12/16 15:09 65 17 139/76 95 Nasal Cannula 09/12/16 14:59 68 17 146/66 96 Nasal Cannula 3.00 09/12/16 14:57 96 09/12/16 14:55 93 09/12/16 14:42 92 19 93 Room Air 09/12/16 11:56 96.1 63 20 158/71 93 Nasal Cannula 4.50 09/12/16 10:45 92 4.00 09/12/16 08:00 96.5 74 16 154/68 91 Nasal Cannula 4.50 09/12/16 08:00 4.00 I & O 09/13/16 07:00 Intake Total 1970 ml Output Total 1625 ml Balance 345 ml General Appearance: No Apparent Distress, WD/WN Neck: Full Range of Motion, Normal Inspection Respiratory: No Accessory Muscle Use, No Respiratory Distress, Decreased Breath Sounds Cardiovascular: No Edema, No Gallop Gastrointestinal: normal bowel sounds, non tender Neurologic/Psychiatric: Alert, Oriented x3 Skin: Normal Color, Warm/Dry Lymphatic: No Adenopathy Results Lab Laboratory Tests 09/12/16 05:49 Assessment/Plan Assessment/Plan Sepsis pneumonia, strep viridans, bacteremia -KALEB- was negative Chest pain Hypertension COPD continue oxygen -MAT JUAN CARLOS WALKER DO September 13, 2016 07:52
[2016-09-13 08:00] VITALS: BP 142/67
[2016-09-13] MEDS: meTOprolol TARTRATE 50 MG (LOPRESSOR) TAB PO SCH (08:06)
[2016-09-13] MEDS: LORATADINE (CLARITIN) 10 MG TAB PO SCH (08:06)
[2016-09-13] MEDS: PHENAZOPYRIDINE 100 MG (PYRIDIUM) TABLET PO SCH ×2 (08:06→14:38)
[2016-09-13] MEDS: ASPIRIN E.C. 81 MG (ECOTRIN) TAB PO SCH (08:06)
[2016-09-13] MEDS: BETAXOLOL 0.5% OU SCH (08:07)
[2016-09-13] MEDS: FLUTICASONE NASAL SPRAY (FLONASE) 16 GM BTL NS SCH (08:08)
[2016-09-13] MEDS: methylPREDNISolone 40 MG/ML (Solu-MEDROL) VIAL IV SCH (08:08)
[2016-09-13] MEDS: LINEZOLID IVPB 300 ML IV SCH (08:08)
[2016-09-13] MEDS ORDERED: methylPREDNISolone 40 MG/ML (Solu-MEDROL) VIAL IV SCH (09:00)
--- NOTE | 2016-09-13 11:39 | Discharge Summary-Hospitalist ---
Diagnosis/Chief Complaint Date of Admission September 10, 2016 at 10:06 Date of Discharge Discharge Date: September 13, 2016 Discharge Diagnosis Chart Review: No fever for 60+ hrs WBC normal at 10 CMP normal Remains on Zosyn and Zyvox Having KALEB today [place] [address] Dr. Pryor Review: KALEB will be performed today at 1500 if she stays NPO Patient Interview: Pt would like to eat breakfast before her surgery. Dr. Reyes tells pt that she will be on clear liquid diet if approved by Dr Pryor. Pt's fever was discussed Pt would like to receive portable O2 at home Physical exam stable Pt has been having loose BMs [facility] No fever, vital signs stable, pleasant, improved Regular rate and rhythm, clear to auscultation bilaterally diminished breath sounds noted No edema Assessment: Fever of 103 with normal chest x-ray revealing early pneumonia RLL with leukocytosis empirically treating on pneumonia protocol with Zosyn and DC Vanc 5 days ago due to side effects but started Zyvox due to Strep Viridans on Blood Cx and evaluating for endocarditis with KALEB today Leukocytosis due to acute illness along with steroids Hypertension Oxygen dependency 24/ at home Glaucoma Hyperglycemia due to steroids Tachycardia consulting Cardiology Plan: Monitor fever Maintain antibiotics Appreciate Dr. Mcdonald's help Appreciate Dr. Pryor help KALEB today at 1500 Likely DC tomorrow Follow up with Dr. Mcdonald and Dr. Medina upon DC Send steroids to pharmacy once DC along with Zyvox and additional abx Home O2 Scribed by Sue Serrano under the direct supervision of Dr. Reyes. Reason Hospital Visit/Course Notes from 09/13/16 Chart Review: No fever No endocarditis on KALEB yesterday will DC home today Patient Interview: Pt was informed that her last steroid dosage was administered today and she will not have to go home on steroids. Physical exam stable. Pt was informed that her O2 supply was updated. Pt was advised will continue IS Pt's son will pick her up upon DC No fever, vital signs stable, pleasant Regular rate and rhythm, clear to auscultation but diminished breath sounds all quispe no significant changes No edema Plan: Follow up with Adam Mcdonald and Marji Continue IS Zyvox BID for 6 days Scribed by Sue Serrano under the direct supervision of Dr. Reyes. Hospital course: Patient had an uneventful swing bed course she underwent KALEB to rule out endocarditis and that was negative for any vegetations so she completed antibiotics IV formulation here and will continue on Zyvox for additional 6 days to complete the strep viridans on blood culture and she is completed pneumonia antibiotic coverage while inpatient. She will not require any steroids at discharge and she will resume all of her home medications at home. Discharge Summary Discharge Physical Examination Allergies: Coded Allergies: No Known Drug Allergies (Unverified , 09/10/16) Vitals & I&Os Vital Signs Date Time Temp Pulse Resp B/P (MAP) Pulse Ox O2 Delivery O2 Flow Rate FiO2 09/13/16 10:59 92 4.00 09/13/16 08:00 96.3 78 20 142/67 Nasal Cannula Discharge Home Medications: Active Scripts Active Zyvox (Linezolid) 600 Mg Tablet 600 Mg PO BID Reported Cyclobenzaprine HCl 10 Mg Tablet 5 Mg PO Q8H PRN Breo Ellipta 200-25 Mcg INH (Fluticasone/Vilanterol) 1 Each Blst.w.dev 1 Puff IH DAILY Ascorbic Acid 500 Mg Tablet 500 Mg PO BID Spiriva Respimat (Tiotropium [place]) 4 Gm Mist.inhal 2 Puff INH DAILY Singulair (Montelukast Sodium) 10 Mg Tablet 10 Mg PO HS Refresh Eye Drops (Polyvinyl Alcohol/Povidone) 50 Ea Drope[place] 1 Drop OU Q12H PRN Aspirin Ec Low Dose (Aspirin) 81 Mg Tablet.dr 81 Mg PO DAILY Hm Calcium 600 + Vit D Tablet (Calcium Carbonate/Vitamin D3) 1 Each Tablet 1 Tab PO BID Betoptic 0.5% Ophthalmic Solution (Betaxolol Hcl) 5 Ml Drops 1 Drop OU BID Ventolin Hfa (Albuterol Sulfate) 1 Puff Puff 2 Puff IH QID PRN 15 MINUTES PRIOR TO EXERCISE Flonase (Fluticasone Propionate) 16 Gm [place] 2 Sprays NS DAILY Epipen 2-Mark (Epinephrine) 0.3 Mg/0.3 Ml Pen.injctr 0.3 Mg IM PRN PRN Atorvastatin Calcium 10 Mg Tablet 10 Mg PO HS Metoprolol Tartrate 50 Mg (Metoprolol Tartrate) 50 Mg Tablet 50 Mg PO BID Multi-Vitamin Daily (Multivitamin) 1 Each Tablet 1 Tab PO DAILY Fish Oil 1,200 Mg Softgel ([place]-3 Fatty Acids/Fish Oil) 1 Each Capsule 1 Tab PO BID All Day Allergy (Cetirizine HCl) 10 Mg Capsule 10 Mg PO DAILY Instructions to patient/family Please see electonic discharge instructions given to patient. OWEN REYES DO September 13, 2016 11:39
[2016-09-13 12:00] VITALS: BP 153/67
--- NOTE | 2016-09-13 12:59 | Cardiology Progress Note ---
Subjective Subjective/Events-last exam Patient is in bed, being discharged home. Denies any CP or dyspnea. Objective-Cardiology Exam Last Set of Vital Signs Vital Signs 09/13/16 09/13/16 08:00 10:59 Temp 96.3 Pulse 78 Resp 20 B/P (MAP) 142/67 Pulse Ox 92 O2 Delivery Nasal Cannula O2 Flow Rate 4.00 Capillary Refill : I&O Intake and Output 09/13/16 00:00 Intake Total 1750 ml Output Total 2475 ml Balance -725 ml Intake Oral 850 ml IV Total 900 ml Output Urine Total 2475 ml General: Alert, Oriented X3, Cooperative HEENT: Atraumatic, PERRLA Neck: Supple, No JVD, No Thyromegaly Lungs: Clear to Auscultation, Normal Air Movement Heart: Regular Rate, Normal S1, Normal S2, No Murmurs Abdomen: Normal Bowel Sounds, Soft, No Tenderness, No Hepatosplenomegaly, No Masses Extremities: No Clubbing, No Cyanosis, No Edema, Normal Pulses, No Tenderness/ Swelling Skin: No Rashes, No Breakdown, No Significant Lesion Neuro: Normal Gait, Normal Speech, Strength at 5/5 X4 Ext, Normal Tone, Sensation Intact Psych/Mental Status: Mental Status NL, Mood NL A/P-Cardiology Admission Diagnosis Sepsis Chest pain Hypertension COPD Assessment/Plan Sepsis, pneumonia, strep viridans , had a reaction to vancomycin, currently receiving Zosyn and Linezolide, managed by Dr. Sheehan, KALEB revealed no evidence of vegitation, small PFO. Chest pain, self-limited, improved after Tums, patient describes episode of tightness all over her chest. last stress test was done in May 2013 and did not show any ischemia or infarction, normal LV function. EKG revealed no acute ST changes. Shortness of breath, acute respiratory insufficiency, Improving, continue on current medications and monitor. History of severe COPD, using home oxygen, followed by Dr. Mcdonald. Hypertension, better control, continue to monitor blood pressure Hyperlipidemia, continue to monitor lipids History of mild bilateral carotid stenosis, last carotid ultrasound was done earlier this month. Continue to monitor History of tobaccoism OK to discharge from Cardiology standpoint. Follow up in1-2 weeks. SIRENA DE LOS SANTOS September 13, 2016 12:59
[2016-09-13 16:34] VITALS: BP 153/67
== END 2016-09-13 16:38 | disposition home or self-care (01) | DRG 190 ==
LOC: 4TH 10:06
PROVIDERS: ADMIT Internal Medicine; ATTEND Internal Medicine
DX: J44.0 Chronic obstructive pulmonary disease with (acute) lower respiratory infection (principal); J15.4 Pneumonia due to other streptococci; I10 Essential (primary) hypertension; J30.2 Other seasonal allergic rhinitis; M19.91 Primary osteoarthritis, unspecified site; M48.06 Spinal stenosis, lumbar region; Z99.81 Dependence on supplemental oxygen; Z85.42 Personal history of malignant neoplasm of other parts of uterus; H40.9 Unspecified glaucoma; I08.1 Rheumatic disorders of both mitral and tricuspid valves; Z87.891 Personal history of nicotine dependence; I65.23 Occlusion and stenosis of bilateral carotid arteries; R73.9 Hyperglycemia, unspecified; T38.0X5A Adverse effect of glucocorticoids and synthetic analogues, initial encounter
CPT/HCPCS: 36415; 80053; 85025; 85610; 85652; 85730; 93005; 93306; 93312; 93321; 94640; 94760

== ENCOUNTER → 2017-01-21 | Outpatient (CLI) | payer MEDICARE ==
[~2017-01-21] MED LIST changes: +LINE600T5 PO
--- NOTE | 2017-01-21 20:02 | Diagnostic Imaging Report ---
PROCEDURE: CT chest without contrast. TECHNIQUE: Multiple contiguous axial images were obtained through the chest without the use of intravenous contrast. INDICATION: Lung mass. CORRELATION STUDY: 03/23/2016 and 06/24/2014. FINDINGS: Evaluation of mediastinal structures limited given lack of intravenous contrast. The thoracic aortic contour appearing unremarkable. Heart size relatively stable with scattered dense coronary artery calcification. Small hiatal hernia at the EG junction. Lung quispe do demonstrate rather advanced emphysematous lung parenchyma. There is a 13 x 12 mm nodule in the posteromedial aspect of the right upper lobe inferiorly again demonstrated. At baseline imaging, measured 12 x 10 mm. Minimal groundglass opacity of the lingula in left upper lobe likely relatively stable at approximately 6 mm. Subpleural nodule in lateral left lower lobe 7 x 5 mm relatively stable from most recent imaging but not demonstrated on prior older studies. Linear parenchymal density of the right lower lobe does persist. More prominent focal area of nodularity in the subpleural region measuring approximately 2.3 x 2.4 cm previously measured approximately 2.1 x 1.6 cm. Osseous structures demonstrate mild rightward curvature of the lower thoracic spine with diffuse bony demineralization present. Visualized portions of the upper abdomen demonstrate small gallstones. IMPRESSION: 1. Advanced emphysematous changes of lung parenchyma present. Scattered areas of pulmonary nodules are again demonstrated. Dominant mass of the right upper lobe stable to perhaps very minimally increased in size. Some of this may be owing to difference in imaging technique. Additional parenchymal density in the right lung base also perhaps minimally more prominent but favors likely atelectasis or scarring. Additional six-month followup imaging recommended. 2. Advanced coronary artery calcification. 3. Cholelithiasis. Dictated by: Dictated on workstation # [id number]
== END ==
LOC: RAD 11:54
PROVIDERS: ATTEND Nurse Practitioner Family
DX: R91.8 Other nonspecific abnormal finding of lung field (principal); J43.9 Emphysema, unspecified; I25.10 Atherosclerotic heart disease of native coronary artery without angina pectoris; K80.20 Calculus of gallbladder without cholecystitis without obstruction
CPT/HCPCS: 71250

== ENCOUNTER → 2017-07-25 | Outpatient (CLI) | payer MEDICARE ==
--- NOTE | 2017-07-25 15:46 | Diagnostic Imaging Report ---
PROCEDURE: CT chest without contrast. TECHNIQUE: Multiple contiguous axial images were obtained through the chest without the use of intravenous contrast. INDICATION: Lung mass. FINDINGS: The previous CT chest exam performed on 01/21/2017 noted a 13 x 12 mm nodule in the posteromedial aspect of the right upper lung. That nodule now measures approximately 14 x 11 mm. I do suspect it is minimally larger than on the prior exam. The other nodular densities in both lungs seen previously are again evident and no different. The band of increased density in the right lower lobe noted previously is also unchanged when compared to the prior exam. However in the interval since the previous study, a new 4 x 6 mm nodule has developed in the periphery of the left midlung (image 24/67). This finding is of uncertain etiology but its development since the prior exam is worrisome for malignancy. I would recommend that a short-term (three-month) followup CT chest exam be obtained for further study. The emphysematous changes involving both lungs seen previously are again evident and no different. There is no sign of failure, pneumonia, or of a pleural effusion to indicate an acute abnormality. The heart is stable in size. Coronary artery calcifications are again evident. There is no obvious mediastinal or hilar adenopathy. The thyroid gland where visualized is unremarkable. There is no breast mass identified with certainty. According to our records, the patient has not had a recent (within the last year) mammogram. If the patient has had a recent mammogram elsewhere, then no further imaging would be warranted. However, if the patient has not had a recent mammogram, then mammography would be recommended for further evaluation. Sections through the upper abdomen again show cholelithiasis without evidence for acute cholecystitis. The bone windows are unremarkable for fracture or for destructive lesion. IMPRESSION: 1. The nodule in the posteromedial aspect of the right upper lobe seen previously is again evident and does not seem to have changed significantly in size. It may be minimally larger, however. 2. A new nodule has also developed in the left midlung. This finding does not have an aggressive appearance but is still worrisome for malignancy. A short-term (three-month) followup CT chest exam would be recommended for further study. 3. There is no acute cardiopulmonary abnormality noted. 4. There is no obvious breast mass. Recommendations as above. 5. There is cholelithiasis without evidence for acute cholecystitis. Dictated by: Dictated on workstation # [id number]
== END ==
LOC: RAD 14:04
PROVIDERS: ATTEND Nurse Practitioner Family
DX: R91.8 Other nonspecific abnormal finding of lung field (principal); J44.9 Chronic obstructive pulmonary disease, unspecified; K80.20 Calculus of gallbladder without cholecystitis without obstruction
CPT/HCPCS: 71250

== ENCOUNTER 2017-10-21 13:18 | Outpatient (RCR) | payer MEDICARE ==
[~2017-10-21 13:18] MED LIST changes: +HYDR-4227 PO; -HYDR-756 PO
[2017-12-03 15:00] VITALS: BP 180/60
[2017-12-03 16:00] VITALS: BP 165/66
[2017-12-05 15:00] VITALS: BP 140/60
[2017-12-05 16:00] VITALS: BP 160/80
[2017-12-10 15:05] VITALS: BP 160/80
[2017-12-10 16:00] VITALS: BP 125/60
[2017-12-17 15:14] VITALS: BP 120/40
[2017-12-17 16:00] VITALS: BP 170/50
[2017-12-19 15:00] VITALS: BP 147/60
[2017-12-19 16:00] VITALS: BP 132/50
[2017-12-24 15:00] VITALS: BP 150/60
[2017-12-24 16:11] VITALS: BP 160/60
[2017-12-26 15:00] VITALS: BP 158/60
[2017-12-26 16:00] VITALS: BP 140/50
[2017-12-31 15:00] VITALS: BP 130/50
[2017-12-31 16:00] VITALS: BP 131/60
[2018-01-02 15:05] VITALS: BP 180/50
[2018-01-02 16:00] VITALS: BP 130/60
[2018-01-16 15:00] VITALS: BP 140/60
[2018-01-16 15:59] VITALS: BP 140/74
[2018-01-21 15:00] VITALS: BP 140/60
[2018-01-21 16:00] VITALS: BP 160/60
[2018-02-06 15:10] VITALS: BP 160/60
[2018-02-06 16:00] VITALS: BP 150/52
== END 2018-01-19 | disposition home or self-care (01) ==
LOC: PULM 13:18
PROVIDERS: ATTEND Nurse Practitioner Family
DX: J44.9 Chronic obstructive pulmonary disease, unspecified (principal); R09.02 Hypoxemia; R06.02 Shortness of breath
CPT/HCPCS: 99211

== ENCOUNTER 2018-01-20 08:00 | Outpatient (RCR) | payer MEDICARE ==
[2018-01-23 15:00] VITALS: BP 132/70
[2018-01-23 16:00] VITALS: BP 120/40
[2018-02-11 15:00] VITALS: BP 144/52
[2018-02-11 16:00] VITALS: BP 160/58
[2018-02-13 15:00] VITALS: BP 152/70
[2018-02-13 16:00] VITALS: BP 150/60
[2018-02-20 15:00] VITALS: BP 159/60
[2018-02-20 16:00] VITALS: BP 130/60
[2018-02-25 15:00] VITALS: BP 140/90
[2018-02-25 16:00] VITALS: BP 143/40
[2018-02-27 15:00] VITALS: BP 150/60
[2018-02-27 16:00] VITALS: BP 131/62
[2018-03-11 15:00] VITALS: BP 140/60
[2018-03-11 16:00] VITALS: BP 110/72
[2018-03-18 15:10] VITALS: BP 127/60
[2018-03-18 16:00] VITALS: BP 120/60
[2018-03-20 15:00] VITALS: BP 140/70
[2018-03-20 15:54] VITALS: BP 158/60
[2018-03-27 15:00] VITALS: BP 132/63
[2018-04-01 15:00] VITALS: BP 160/50
[2018-04-01 16:00] VITALS: BP 130/60
[2018-04-08 15:00] VITALS: BP 170/60
[2018-04-08 16:00] VITALS: BP 160/50
[2018-04-10 15:05] VITALS: BP 150/60
[2018-04-10 16:00] VITALS: BP 150/60
[2018-04-15 15:30] VITALS: BP 170/50
[2018-04-15 16:00] VITALS: BP 122/50
[2018-04-17 15:15] VITALS: BP 170/60
[2018-04-17 16:00] VITALS: BP 150/60
[2018-04-22 15:10] VITALS: BP 150/60
[2018-04-22 16:00] VITALS: BP 130/60
== END 2018-04-20 | disposition home or self-care (01) ==
LOC: PULM 08:00
PROVIDERS: ATTEND Nurse Practitioner Family
DX: J44.9 Chronic obstructive pulmonary disease, unspecified (principal); R09.02 Hypoxemia; R06.02 Shortness of breath

== ENCOUNTER 2018-04-29 08:00 | Outpatient (RCR) | payer MEDICARE ==
[2018-04-29 15:00] VITALS: BP 140/60
[2018-04-29 16:00] VITALS: BP 140/50
[2018-05-27 15:00] VITALS: BP 142/80
[2018-05-27 16:06] VITALS: BP 125/60
[2018-05-29 15:10] VITALS: BP 158/60
[2018-05-29 15:56] VITALS: BP 140/60
[2018-06-05 15:00] VITALS: BP 160/60
[2018-06-05 16:03] VITALS: BP 120/60
[2018-06-11] MEDS ORDERED: ALBU18HF2 INH (12:30)
[2018-06-11] MEDS ORDERED: ATOR10TA66 PO (12:30)
[2018-06-11] MEDS ORDERED: FAMO40TA6 PO (12:30)
[2018-06-11] MEDS ORDERED: ASPI-983 PO (12:30)
[2018-06-11] MEDS ORDERED: CYCL1DRO OU (12:30)
[2018-06-11] MEDS ORDERED: CALC1TAB94 PO (12:30)
[2018-06-11] MEDS ORDERED: FLUT1AER IH (12:30)
[2018-06-11] MEDS ORDERED: MULT-1060 PO (12:30)
[2018-06-11] MEDS ORDERED: EPIN0.3P2 IJ (12:30)
[2018-06-11] MEDS ORDERED: CARB15DR OU (12:30)
[2018-06-11] MEDS ORDERED: METO50TA15 PO (12:30)
[2018-06-11] MEDS ORDERED: TRIA10.8 NS (12:30)
[2018-06-11] MEDS ORDERED: PRED5TAB PO (12:30)
[2018-06-11] MEDS ORDERED: LISI-556 PO (12:30)
[2018-06-11] MEDS ORDERED: CETI10TA17 PO (12:30)
[2018-06-11] MEDS ORDERED: ASCO10006 PO (12:30)
[2018-06-11] MEDS ORDERED: OMG1KC PO (12:30)
== END 2018-07-28 | disposition home or self-care (01) ==
LOC: PULM 08:00
PROVIDERS: ATTEND Nurse Practitioner Family
DX: J44.9 Chronic obstructive pulmonary disease, unspecified (principal); R09.02 Hypoxemia; R06.02 Shortness of breath

== ENCOUNTER → 2018-05-29 | Outpatient (CLI) | payer MEDICARE | LOC: CARD 14:12 | PROVIDERS: ATTEND Internal Medicine Cardiovascular Disease | DX: R07.9 Chest pain, unspecified (principal); R06.00 Dyspnea, unspecified; I10 Essential (primary) hypertension; E78.2 Mixed hyperlipidemia; R00.2 Palpitations; J44.9 Chronic obstructive pulmonary disease, unspecified | CPT/HCPCS: 93306 ==

== ENCOUNTER → 2018-06-02 | Outpatient (CLI) | payer MEDICARE ==
[~2018-06-02] VITALS: Ht 160 cm; Wt 89.4 kg
[~2018-06-02] MED LIST changes: +CATHETER FLUSH 10 ML SYR IV PRN; +REGADENOSON 0.4 MG/5 ML SYR (LEXISCAN) IV ONE
--- NOTE | 2018-06-03 10:33 | STRESS TEST ---
DATE OF SERVICE: 06/02/2018 LEXISCAN MYOVIEW STRESS TEST REPORT Baseline heart rate is 82. Baseline blood pressure is 198/82. Baseline EKG is sinus rhythm with no ischemic changes. In summary, the patient was injected with 10.39 mCi of technetium-99 Myoview and the resting images were obtained. Then, the patient received 0.4 mg of Lexiscan followed by 28.4 mCi of technetium-99 Myoview. Throughout the test, there were no EKG changes. The resting and stressed images were reviewed and compared in the short axis, horizontal long axis, and vertical long axis views. Review of the images showed extracardiac attenuation affecting the quality of the images. There is questionable mild ischemia involving the mid to apical inferior wall and inferolateral wall. SSS is 7, SDS 7, TID value 0.96. On the gated images, the left ventricle appeared to be small with good contractility. Calculated ejection fraction 77%. CONCLUSION: 1. The patient tolerated Lexiscan well. 2. Extracardiac attenuation affecting the quality of the images with questionable mild ischemia involving the mid to apical inferior wall and inferolateral wall. 3. Small left ventricular size with normal contractility. Calculated ejection fraction 77%. Job ID: [id number] DocumentID: [id number] Dictated Date: 06/02/2018 12:43:16 Teenage Program Director Date: 06/02/2018 17:37:49 Dictated By: JEAN SELF MD
== END ==
LOC: CARD 08:00
PROVIDERS: ATTEND Internal Medicine Cardiovascular Disease
DX: R07.9 Chest pain, unspecified (principal); R06.00 Dyspnea, unspecified; I10 Essential (primary) hypertension; E78.2 Mixed hyperlipidemia; R00.2 Palpitations; J44.9 Chronic obstructive pulmonary disease, unspecified
CPT/HCPCS: 78452; 93017

== ENCOUNTER 2018-06-11 10:42 | Day surgery (SDC) | payer MEDICARE ==
[~2018-06-11] VITALS: Ht 160 cm; Wt 89.8 kg
[2018-06-11] VITALS (10 sets, daily range): BP systolic 109–136; BP diastolic 57–96
[~2018-06-11 10:42] MED LIST changes: -CATHETER FLUSH 10 ML SYR IV PRN; -REGADENOSON 0.4 MG/5 ML SYR (LEXISCAN) IV ONE
[2018-06-11] MEDS ORDERED: LIDOCAINE 1% INJ 20 ML 20 ML VIAL ONE (11:04)
[2018-06-11] MEDS ORDERED: HEParin (CATH LAB) 2,000 ML IV ONE (11:04)
[2018-06-11] MEDS ORDERED: NS IV 1000 ML 1,000 ML ONE (11:04)
[2018-06-11] MEDS ORDERED: NS IV 1000 ML 1,000 ML IV SCH ×2 (11:15→13:59)
[2018-06-11 11:47] LABS: HEMOGLOBIN 13.2 G/DL (11.5-16.0); MEAN PLATELET VOLUME 10.3 FL (7.4-10.4); RED CELL DISTRIBUTION WIDTH 14.5 % (10.0-14.5); WHITE BLOOD COUNT 10.2 10^3/uL (4.3-11.0)
[2018-06-11 11:50] LABS: BILIRUBIN,URINE NEGATIVE (NEGATIVE); CLARITY,URINE CLEAR; COLOR,URINE YELLOW; GLUCOSE, URINE (UA) NEGATIVE (NEGATIVE); KETONES,URINE NEGATIVE (NEGATIVE); LEUKOCYTE ESTERASE ,URINE 1+ (NEGATIVE); NITRITE,URINE NEGATIVE (NEGATIVE); PH,URINE 7 (5-9); PROTEIN,URINE 1+ (NEGATIVE); UROBILINOGEN,URINE NORMAL (NORMAL)
[2018-06-11 11:59] LABS: INR 1.1 (0.8-1.4); PROTHROMBIN TIME PATIENT 13.8 SEC (12.2-14.7)
[2018-06-11 12:01] LABS: BACTERIA,URINE MODERATE /HPF
[2018-06-11 12:05] LABS: ALBUMIN 4.3 GM/DL (3.2-4.5); BILIRUBIN,TOTAL 0.5 MG/DL (0.1-1.0); CALCIUM 9.6 MG/DL (8.5-10.1); CREATININE SERUM 0.94 MG/DL (0.60-1.30); POTASSIUM 3.8 MMOL/L (3.6-5.0); TOTAL PROTEIN 7.8 GM/DL (6.4-8.2)
[2018-06-11] MEDS ORDERED: FAMO40TA6 PO (12:30)
[2018-06-11] MEDS ORDERED: ASPI-983 PO (12:30)
[2018-06-11] MEDS ORDERED: CALC1TAB94 PO (12:30)
[2018-06-11] MEDS ORDERED: CETI10TA17 PO (12:30)
[2018-06-11] MEDS ORDERED: LISI-556 PO (12:30)
[2018-06-11] MEDS ORDERED: ALBU18HF2 INH (12:30)
[2018-06-11] MEDS ORDERED: TRIA10.8 NS (12:30)
[2018-06-11] MEDS ORDERED: EPIN0.3P2 IJ (12:30)
[2018-06-11] MEDS ORDERED: MULT-1060 PO (12:30)
[2018-06-11] MEDS ORDERED: ATOR10TA66 PO (12:30)
[2018-06-11] MEDS ORDERED: CARB15DR OU (12:30)
[2018-06-11] MEDS ORDERED: ASCO10006 PO (12:30)
[2018-06-11] MEDS ORDERED: CYCL1DRO OU (12:30)
[2018-06-11] MEDS ORDERED: OMG1KC PO (12:30)
[2018-06-11] MEDS ORDERED: PRED5TAB PO (12:30)
[2018-06-11] MEDS ORDERED: METO50TA15 PO (12:30)
[2018-06-11] MEDS ORDERED: FLUT1AER IH (12:30)
--- NOTE | 2018-06-11 12:34 | NUR ---
SPOKE WITH THE PATIENT ABOUT HER MEDICATIONS. SHE HAD HER BOTTLES WITH HER WELL A DETAILED LIST. SHE DID NOT HAVE THE LISINOPRIL BUT VERIFIED SHE IS TAKING IT. SHE STATES SHE MUST HAVE MISSED PACKING IT. HER PREDNISONE WAS PRESCRIBED DAILY HOWEVER SHE STATES IT HAS BEEN DECREASED TO EVERY OTHER DAY.
[2018-06-11] MEDS ORDERED: MIDAZOLAM 5 MG/5 ML (VERSED) VIAL ONE (12:38)
[2018-06-11] MEDS ORDERED: fentaNYL INJECTION 100 MCG/2 ML AMP ONE (12:38)
--- NOTE | 2018-06-11 12:46 | Cardiac Procedure Note-CS/ASA ---
Pre-Procedure Note Pre-Op Procedure Note H&P Reviewed The H&P was reviewed, patient examined and no changes noted. Date H&P Reviewed: Jun 11, 2018 Time H&P Reviewed: 12:46 Conscious Sedation Pre-Proced Time 12:46 ASA Score 3 For ASA 3 and 4: Consider anesthesia and medical clearance. Also, for patients with a history of failed moderate sedation consider anesthesia. Airway Lungs Heart ASA score ASA 1: a normal healthy patient ASA 2: a patient with a mild systemic disease (mid diabetes, controlled hypertension, obesity x ASA 3: a patient with a severe systemic disease that limits activity (angina , COPD, prior Myocardial infarction) ASA 4: a patient with an incapacitating disease that is a constant threat to life (CHF, renal failure) ASA 5: a moribund patient not expected to survive 24 hrs. (ruptured aneurysm) ASA 6: a declared brain- patient whose organs are being harvested. For emergent operations, add the letter E after the classification Mallampati Classification Grade 3 Sedation Plan Analgesia, Amnesia, Plan communicated to team members, Discussed options with patient/fam, Discussed risks with patient/fam The patient is an appropriate candidate to undergo the planned procedure, sedation, and anesthesia. The patient immediately re-assessed prior to indication. JEAN SELF MD Jun 11, 2018 12:46
--- NOTE | 2018-06-11 12:53 | Diagnostic Imaging Report ---
INDICATION: Coronary artery disease Frontal chest obtained at 1144 hrs am, compared to 09/10/16. Heart is borderline enlarged. There is mild central vascular prominence. Chronic appearing increased interstitial markings. There is no acute infiltrate or pneumothorax or pleural fluid. There is biapical bullous disease. IMPRESSION: Borderline cardiomegaly and COPD changes with chronic appearing increased basilar markings. No acute consolidation or pleural fluid. Dictated by: Dictated on workstation # [id number]
[2018-06-11] MEDS ORDERED: PATIENT MAY USE OWN MEDS, ALL PO SCH (14:00)
--- NOTE | 2018-06-11 14:04 | Discharge Inst-Post CATH ---
Discharge Inst-CATH/EP Post Cardiac Cath/EP D/C Inst Follow Up/Plan Appointment with Dr. Pryor's office in 4 weeks CARDIAC CATH DISCHARGE INSTRUCTIONS *Hold Metformin for 48 hours post heart cath. ACTIVITY * Go Home directly and rest. * Limit activity of the leg (or wrist if it was used) for 7 days including aerobics, swimming, jogging, bicycling, etc. * Restrict stair-climbing for 7 days if possible, if not, climb up with your non -cath leg, then bring together on the same step. * Avoid lifting, pushing, pulling or excessive movement of the affected extremity for 7 days. * Customary sexual activity may be resumed after 2 days-use caution not to use a position that strains or causes pain to the affected extremity. * No driving for 24 hours. * NO SMOKING. * Avoid straining for bowel movements for 7 days. * Gentle walking on level ground is allowed. * Returning to work will depend on the type of procedure and the results. Your doctor will discuss this with you. CALL YOUR DOCTOR FOR ANY OF THE FOLLOWING: *If bleeding from the puncture site occurs- Apply gentle pressure to site with clean cloth and call your doctor or EMS. * If a knot or lump forms under the skin, increases in size, or causes pain. * If bruising appears to be worsening or moving further down your leg instead of disappearing. * Temperature above 101 F. CARE OF YOUR GROIN INCISION; * Bruising or purple discoloration of the skin near the puncture site is common. * You may shower only, no bathtub bathing for 5 days. Be careful to avoid slipping as your leg may feel stiff. * If a closure device was used on your femoral artery, please see the attached guide regarding care of the device and your leg. * Leave the dressing on, until removed by office staff. CARE OF YOUR WRIST INCISION; * Bruising or purple discoloration of the skin near the puncture site is common. * You may shower. * DO NOT submerge wrist. * Leave dressing on, until removed by office staff.. JEAN PRYOR MD Jun 11, 2018 14:04
--- NOTE | 2018-06-11 14:09 | Cardiac Cath Report ---
Cardiac Cath Report Physician (s)/Financial Planning Advisor (s) Physician JEAN SELF MD Pre-Procedure Diagnosis Pre-Procedure Diagnosis: coronary artery disease Post-Procedure Note Procedure Start Date: Jun 11, 2018 Name of Procedure: left heart catheter Aortic arch angiogram Findings/Procedure Note PROCEDURE NOTE: After explaining the procedure to the patient, all pros and cons were explained , all questions were answered. The patient signed the consent and then she was placed on the cardiac catheterization laboratory. Groin was prepped SL fashion local anesthesia was used. Sheath placed in the right femoral artery. Leila right and left catheter were used to access the coronary system. Pigtail was used to access the left ventricular cavity. Left ventriculogram was done Aortic arch angiogram was done At the end of the procedure the sheath was removed. Closure device FINDINGS: Hemodynamics LV 152/17, end-diastolic pressure of 17 Aorta 121/64, mean of 88 ANATOMY: Left Main has no obstructive disease Left Anterior Descending has mild disease, mild ectasia, nonobstructive disease Left Circumflex has moderate disease at the second obtuse marginal at its ostium , mild ectasia proximally, medical therapy is recommended Right Coronory Artery has mild disease nonobstructive disease LV Gram was done showing normal left ventricular size with normal contraction. Estimated ejection fraction 60 percent Aorta evaluation done with aortic arch angiogram which showed calcification at the origin of the right subclavian/right carotid artery, no dissection or aneurysm. The left subclavian artery has some calcification, no obstructive disease CONCLUSION: 1. Mild ectasia in the circumflex system with ostial disease at the second obtuse marginal branch, mild disease otherwise nonobstructive disease 2. Mild atherosclerotic plaque in the mid LAD nonobstructive disease 3. Calcification in the right subclavian and right carotid artery at the origin , no obstructive disease. 4. Normal left ventricle size and systolic function estimated ejection fraction 60 percent DISCUSSION AND RECOMMENDATION: Continue to maximize medical therapy no intervention is Anesthesia Type: Conscious Sedation Estimated blood loss (mL): 20 ml Contrast Amount: 80 ml Total Radiation Dose: 477 mGy Post-Procedure Diagnosis Post-operative diagnosis: Coronary artery disease Hypertension Hyperlipidemia Diabetes mellitus JEAN SELF MD Jun 11, 2018 14:09
== END 2018-06-11 18:00 | disposition home or self-care (01) ==
LOC: CATH 10:42
PROVIDERS: ATTEND Internal Medicine Cardiovascular Disease
DX: I25.10 Atherosclerotic heart disease of native coronary artery without angina pectoris (principal); I10 Essential (primary) hypertension; E78.2 Mixed hyperlipidemia; E11.9 Type 2 diabetes mellitus without complications; R06.00 Dyspnea, unspecified; J44.9 Chronic obstructive pulmonary disease, unspecified; F17.210 Nicotine dependence, cigarettes, uncomplicated; R82.998 Other abnormal findings in urine
CPT/HCPCS: 36221; 36415; 71045; 80053; 81000; 85027; 85610; 85730; 87077; 87081; 87088; 93458

== ENCOUNTER → 2018-11-10 | Outpatient (CLI) | payer MEDICARE ==
[~2018-11-10] MED LIST changes: +ALBU18HF2 INH; +ASCO10006 PO; +ASPI-983 PO; +CALC1TAB94 PO; +CARB15DR OU; +CETI10TA17 PO; +EPIN0.3P2 IJ; +FAMO40TA6 PO; +FLUT1AER IH; +LISI-556 PO; +METO50TA15 PO; +MULT-1060 PO; +OMG1KC PO; +PRED5TAB PO; +TRIA10.8 NS
--- NOTE | 2018-11-10 14:48 | Diagnostic Imaging Report ---
PROCEDURE: CT chest without contrast. TECHNIQUE: Multiple contiguous axial images were obtained through the chest without the use of intravenous contrast. Auto Exposure Controls were utilized during the CT exam to meet ALARA standards for radiation dose reduction. INDICATION: Shortness of breath, COPD and lung nodule with history of asthma, hypoxia, and dyspnea as well as allergic rhinitis. COMPARISON: Comparison made with prior examination from 05/16/2018. FINDINGS: There is an unchanged 1.3 cm noncalcified nodule in the medial aspect of the right lung. There is an unchanged 4 mm nodule in the posterolateral left lung. There is unchanged nodular scarring in the right lung base. There are no new pulmonary nodules, masses, or infiltrates. There is no pleural or pericardial fluid. There is no pneumothorax. There is extensive coronary artery calcification. The heart size is normal. The thoracic aorta is normal in caliber. There is no pathologically enlarged adenopathy in the chest. There is cholelithiasis. The remainder of the intra-abdominal structures are unremarkable. There are mild degenerative changes in the spine. IMPRESSION: 1. Stable bilateral pulmonary nodules. 2. There is also unchanged nodular scarring in the right lung base. 3. Diffuse centrilobular emphysematous disease. 4. Extensive coronary artery calcification. 5. Cholelithiasis. Dictated by: Dictated on workstation # [id number]
== END ==
LOC: RAD 14:05
PROVIDERS: ATTEND Nurse Practitioner Family
DX: J43.2 Centrilobular emphysema (principal); I25.10 Atherosclerotic heart disease of native coronary artery without angina pectoris; J45.909 Unspecified asthma, uncomplicated; K21.9 Gastro-esophageal reflux disease without esophagitis; K80.20 Calculus of gallbladder without cholecystitis without obstruction; R91.8 Other nonspecific abnormal finding of lung field
CPT/HCPCS: 71250

== ENCOUNTER → 2019-05-19 | Outpatient (CLI) | payer MEDICARE ==
--- NOTE | 2019-05-19 16:06 | Diagnostic Imaging Report ---
PROCEDURE: CT chest without contrast. TECHNIQUE: Multiple contiguous axial images were obtained through the chest without the use of intravenous contrast. Auto Exposure Controls were utilized during the CT exam to meet ALARA standards for radiation dose reduction. INDICATION: History of COPD and pulmonary nodules. Follow up. Shortness of air. COMPARISON: 05/16/2018, 11/10/2018, 11/07/2017, and 03/23/2016. FINDINGS: Evaluation of the lung quispe demonstrates stable lobulated soft tissue nodular density within the posterior margins of the right upper lobe. It measures 1.4 x 1.1 cm on today's exam, this is in comparison to 1.3 x 1.1 cm on exam dated 03/23/2016. Juxtapleural ovoid density is also again identified involving the posterior margins of the right lower lobe. It measures 1.4 x 1.7 cm. This is improved compared to similar re-measurements on the exam dated 03/23/2016 of 1.6 x 2.1 cm. This is felt to be on the basis of rounded atelectasis. Since the previous exam, there has been interval development of juxtapleural density within the superomedial margins of the right upper lobe that measures 1.7 x 1 cm (image 45, series 4). Juxtapleural scarring and atelectasis is also noted within the posterior left lower lobe. Also within the left lower lobe is stable subpleural 6 mm micronodule seen laterally (image 117, series 4). Within the posterolateral margins of the superior segment of the left lower lobe is a 4 mm micronodular density (image 80, series 4). This is stable compared to 11/07/2017. There is no new focal consolidation, large effusion, nor pneumothorax. Background advanced emphysematous disease is also noted. Cardiomediastinal structures show normal heart size. There is advanced calcified coronary atherosclerosis and mild scattered calcified aortic atherosclerotic disease. Small hiatal hernia is noted. No pathologically enlarged or morphologically abnormal adenopathy is seen within the mediastinum, delicia, nor axilla on this noncontrast study. Osseous structures show no acute abnormalities. Included portions of the upper abdomen are unremarkable as well. IMPRESSION: 1. Multiple bilateral pulmonary nodules and micronodules as described above. In summary, the majority of these are stable when compared to prior exams. There is however single new juxtapleural density within the medial margins of the right upper lobe. Conceivably, this could be on the basis of area of developing focal atelectasis or infiltrate, as opposed to soft tissue lesion. Six-month follow-up with repeat CT chest is recommended. If the area of concern persists, consideration could be given to CT-guided biopsy. 2. Background advanced emphysematous disease. 3. Calcified aortic and coronary atherosclerosis as above. Dictated by: Dictated on workstation # [id number]
== END ==
LOC: RAD 14:47
PROVIDERS: ATTEND Nurse Practitioner Family
DX: J43.9 Emphysema, unspecified (principal); J45.909 Unspecified asthma, uncomplicated; K21.9 Gastro-esophageal reflux disease without esophagitis; I70.0 Atherosclerosis of aorta; I25.10 Atherosclerotic heart disease of native coronary artery without angina pectoris; J98.4 Other disorders of lung
CPT/HCPCS: 71250

== ENCOUNTER → 2019-07-27 | Outpatient (CLI) | payer MEDICARE ==
[~2019-07-27] MED LIST changes: +HOLD METFORMIN - RECEIVED CONTRAST 20 ML VIAL IV SCH; +IOHEXOL 350 MG/ML 100 ML (OMNIPAQUE 350) VIAL IV ONE; +LINE600T12 PO; -LINE600T5 PO; +NS 100 ML (IVPB) BAG IV ONE
[2019-07-27 10:14] LABS: CREATININE SERUM 1.04 MG/DL (0.60-1.30)
--- NOTE | 2019-07-27 11:04 | Diagnostic Imaging Report ---
PROCEDURE: CT chest with contrast only. TECHNIQUE: Multiple contiguous axial images were obtained through the chest after administration of intravenous contrast. Auto Exposure Controls were utilized during the CT exam to meet ALARA standards for radiation dose reduction. DATE: July 27, 2019. COMPARISON: CT chest May 19, 2019, November 10, 2018, and May 16, 2018. Additional CT chest imaging dating back to July 25, 2017 and January 21, 2017. INDICATION: 79-year-old female, history of chronic obstructive pulmonary disease. Shortness of breath. FINDINGS: There is a right upper lobe pulmonary nodule measuring 1.6 x 1.3 cm in size on axial image 62. This is present on July 25, 2017 and previously measured 1.3 x 1.2 cm in size. The nodule has mildly increased in size over the past 2 years. There is a wedge-shaped area of opacification in the right lower lobe, unchanged since July 2017, consistent with scarring. There are upper lobe predominant findings of emphysema. There is a 7 mm elongated left lower lobe pulmonary nodule, unchanged since July 2017 on axial image 109 currently. There are linear opacities in the left lower lobe, consistent with atelectasis and/or scarring. There is no additional identified pulmonary nodule. There is no pneumothorax. There is no pleural effusion. There is no identified pulmonary embolus. The main pulmonary artery diameter is within normal limits. There are coronary artery calcifications and additional areas of atherosclerotic disease. There is no identified abnormally enlarged mediastinal, hilar, or axillary lymph node which meets CT size criteria for adenopathy. There is cholelithiasis without evidence of acute cholecystitis. There is a very small accessory splenule. Additional limited evaluation of the imaged portions of the upper abdomen is unremarkable. There is no acute bony abnormality. IMPRESSION: 1. Right upper lobe pulmonary nodule currently measuring 1.6 x 1.3 cm in size which is mildly increased in size since July 25, 2017 when the nodule previously measured 1.3 x 1.2 cm in size. Recommend CT-guided biopsy for definitive diagnosis. 2. Smaller pulmonary nodules are unchanged since July 2017. 3. Upper lobe predominant findings of emphysema. Dictated by: Dictated on workstation # [id number]
== END ==
LOC: RAD 09:44
PROVIDERS: ATTEND Nurse Practitioner Family
DX: J44.9 Chronic obstructive pulmonary disease, unspecified (principal); R91.8 Other nonspecific abnormal finding of lung field; Z72.0 Tobacco use
CPT/HCPCS: 36415; 71260; 82565; 84520

== ENCOUNTER → 2019-08-18 | Outpatient (CLI) | payer MEDICARE ==
[~2019-08-18] MED LIST changes: -HOLD METFORMIN - RECEIVED CONTRAST 20 ML VIAL IV SCH; -IOHEXOL 350 MG/ML 100 ML (OMNIPAQUE 350) VIAL IV ONE; -NS 100 ML (IVPB) BAG IV ONE
--- NOTE | 2019-08-18 12:33 | Diagnostic Imaging Report ---
INDICATION: Right upper lobe lung mass. Serum blood glucose level at time of injection is 111 mg/dL. The patient was measured 15.1 mCi F-18 FDG intravenously in the left antecubital location and PET imaging was performed from the top of skull to mid thighs. Noncontrast CT was also performed for attenuation correction and anatomic correlation. Correlation is made with recent CT chest from 07/27/2019 as well as prior PET/CT study from 07/20/2014. There is symmetric activity throughout the brain. The soft tissues of the neck are unremarkable. The subpleural nodule in the posterior aspect of the right upper lobe previously described does not demonstrate FDG avidity. Linear parenchymal densities in the posterior right lower lobe are also stable and do not show hypermetabolism. No mediastinal or hilar hypermetabolism is identified. Abdomen and pelvis demonstrate physiologic activity throughout the gastrointestinal and genitourinary tracts. No suspicious hypermetabolism is detected. IMPRESSION: Unremarkable PET/CT study. The nodule in the posterior right upper lobe does not demonstrate FDG uptake. Dictated by: Dictated on workstation # [id number]
== END ==
LOC: RAD 09:22
PROVIDERS: ATTEND Nurse Practitioner Family
DX: R91.1 Solitary pulmonary nodule (principal); J44.9 Chronic obstructive pulmonary disease, unspecified

== ENCOUNTER → 2019-11-16 | Outpatient (CLI) | payer MEDICARE ==
[2019-11-16 11:02] LABS: CREATININE SERUM 1.35 MG/DL (0.60-1.30)
== END ==
LOC: RAD 10:32
PROVIDERS: ATTEND Nurse Practitioner Family
DX: J44.9 Chronic obstructive pulmonary disease, unspecified (principal); J30.9 Allergic rhinitis, unspecified; Z53.8 Procedure and treatment not carried out for other reasons
CPT/HCPCS: 36415; 82565; 84520

== ENCOUNTER → 2019-11-18 | Outpatient (CLI) | payer MEDICARE ==
--- NOTE | 2019-11-18 13:36 | Diagnostic Imaging Report ---
PROCEDURE: CT chest without contrast. TECHNIQUE: Multiple contiguous axial images were obtained through the chest without the use of intravenous contrast. Auto Exposure Controls were utilized during the CT exam to meet ALARA standards for radiation dose reduction. DATE: November 18, 2019. COMPARISON: CT chest July 27, 2019. Additional CT chest imaging dating back to June 24, 2014. INDICATION: 79-year-old female, hypoxemia. History of chronic obstructive pulmonary disease. PROCEDURE: Axial noncontrasted CT images of the chest. Noncontrasted limits the evaluation of the mediastinum and vascular structures. FINDINGS: There is a right upper lobe pulmonary nodule on axial image 62 measuring 1.5 x 1.3 cm in size. This previously measured 1.3 x 1.0 cm in size on June 24, 2014. This is largely unchanged in size for greater than 5 years and is most consistent with a benign finding. There are predominantly linear opacities in the right middle lobe and right lower lobe which are also unchanged since June 24, 2014. There are mild linear opacities in the upper lobes and left lower lobe which also likely relate to mild areas of scarring and/or atelectasis. There is no new or enlarging pulmonary nodule. There are upper lobe predominant findings of centrilobular emphysema. There is no additional focal airspace consolidation. There is no pneumothorax. There is no pleural effusion. The central airways are patent. There are coronary artery calcifications and additional areas of atherosclerotic disease. The heart is not enlarged. There is no pericardial effusion. There is no identified abnormally enlarged mediastinal or axillary lymph node which meets CT size criteria for adenopathy. There is cholelithiasis without evidence of acute cholecystitis. There is no identified acute bony abnormality. IMPRESSION: 1. There is a 1.5 x 1.3 cm right upper lobe pulmonary nodule which does measure mildly increased in size since June 24, 2014 when it previously measured 1.3 x 1.0 cm in size. This nodule is not FDG avid on recent PET/CT of August 18, 2019. This nodule is most likely benign. 2. Upper lobe predominant findings of emphysema. 3. Multifocal mild scarring in both lungs. Dictated by: Dictated on workstation # [id number]
== END ==
LOC: RAD 12:29
PROVIDERS: ATTEND Nurse Practitioner Family
DX: J43.9 Emphysema, unspecified (principal); R91.1 Solitary pulmonary nodule
CPT/HCPCS: 71250